=== PATIENT | female | born 1940 | race Caucasian/White ===

== ENCOUNTER → 2016-07-01 | Outpatient (CLI) | payer OTHER ==
[~2016-07-01] MED LIST: ACET-1138 PO; AMB5 PO; ASPEC81 PO; BND25X PO; CALC1CHW95 PO; CLB200 PO; CLC100 PO; CYM60 PO; EZET10TA47 PO; FRRG PO; LISI10TA PO; LPR25 PO; LPT/40 PO; LYR75 PO; MISCCAP80 PO; MLXESC PO; MOMLX PO; MULT-589 PO; MULTTAB58 PO; NXM/40 PO; OMEG10007 PO; PRT40 PO; RXC5 PO; TRAZ1TAB8 PO
[2016-07-01 12:48] LABS: MEAN CELL VOLUME 87.9 fL (80-100); MEAN PLATELET VOLUME 10.2 fL (7.4-10.4); PLATELET COUNT 388 K/uL (130-400); RED BLOOD COUNT 4.89 M/uL (4.2-5.4); WHITE BLOOD COUNT 9.52 K/uL (4.8-10.8)
[2016-07-01 13:04] LABS: BLOOD UREA NITROGEN 19 mg/dl (7-18); BUN/CREATININE RATIO 22.1 (10-20); CALCIUM 9.2 mg/dl (8.5-10.1); CARBON DIOXIDE 29 mmol/L (21-32); CHLORIDE 105 mmol/L (98-107); CREATININE 0.87 mg/dl (0.60-1.20); GLUCOSE 89 mg/dl (70-99); POTASSIUM 4.4 mmol/L (3.5-5.1); SODIUM 141 mmol/L (136-145)
== END | disposition home or self-care (01) ==
LOC: C.LABPVFM 09:31
PROVIDERS: ATTEND Family Medicine
DX: D64.9 Anemia, unspecified (principal); I10 Essential (primary) hypertension

== ENCOUNTER → 2017-02-18 | Outpatient (CLI) | payer OTHER ==
--- NOTE | 2017-02-18 10:36 | DIAGNOSTIC IMAGING REPORT ---
LEFT HUMERUS MIN 2 VIEWS ROUTINE, LEFT SHOULDER MIN 2 VIEWS ROUTINE CLINICAL HISTORY: BREAST CANCER PAIN IN LT SHOULDER COMPARISON STUDY: None. FINDINGS: 3 views of the left shoulder and 2 views of the left humerus. No acute fracture or dislocation within the left shoulder or left humerus. The left clavicle is intact. Mild AC joint degenerative change. Severe cartilage space narrowing with bzhg-pr-[id number] articulation, subchondral sclerosis, and subchondral cystic change at the glenohumeral joint. There are marginal osteophytes at the glenohumeral joint. Small ossific density inferior to the humeral head may represent an intra-articular loose body. This measures 7 mm. No suspicious osseous lesions within the left shoulder or left humerus. IMPRESSION: Severe osteoarthritis at the glenohumeral joint. No fractures or suspicious osseous lesions within the left shoulder or left humerus. Electronically signed by: Jakob Torrez M.D. 02/18/2017 10:35 AM Dictated Date/Time: 02/18/2017 10:31 AM
--- NOTE | 2017-02-18 10:36 | DIAGNOSTIC IMAGING REPORT ---
LEFT HUMERUS MIN 2 VIEWS ROUTINE, LEFT SHOULDER MIN 2 VIEWS ROUTINE CLINICAL HISTORY: BREAST CANCER PAIN IN LT SHOULDER COMPARISON STUDY: None. FINDINGS: 3 views of the left shoulder and 2 views of the left humerus. No acute fracture or dislocation within the left shoulder or left humerus. The left clavicle is intact. Mild AC joint degenerative change. Severe cartilage space narrowing with trsj-xn-yuri articulation, subchondral sclerosis, and subchondral cystic change at the glenohumeral joint. There are marginal osteophytes at the glenohumeral joint. Small ossific density inferior to the humeral head may represent an intra-articular loose body. This measures 7 mm. No suspicious osseous lesions within the left shoulder or left humerus. IMPRESSION: Severe osteoarthritis at the glenohumeral joint. No fractures or suspicious osseous lesions within the left shoulder or left humerus. Electronically signed by: Jakob Torrez M.D. 02/18/2017 10:35 AM Dictated Date/Time: 02/18/2017 10:31 AM
[2017-02-18 13:09] LABS: ALB/GLOB RATIO 0.9 (0.9-2); ALKALINE PHOSPHATASE 106 U/L (45-117); ALT/SGPT 28 U/L (12-78); AST/SGOT 25 U/L (15-37); BLOOD UREA NITROGEN 19 mg/dl (7-18); BUN/CREATININE RATIO 22.2 (10-20); CALCIUM 9.1 mg/dl (8.5-10.1); CARBON DIOXIDE 28 mmol/L (21-32); CHLORIDE 108 mmol/L (98-107); CREATININE 0.86 mg/dl (0.60-1.20); GLUCOSE 91 mg/dl (70-99); POTASSIUM 4.2 mmol/L (3.5-5.1); SODIUM 141 mmol/L (136-145)
[2017-02-18 13:10] LABS: ESTIMATED AVERAGE GLUCOSE 134 mg/dl; HA1C FLAG Normal (Normal)
[2017-02-18 13:13] LABS: CHOLESTEROL 188 mg/dl (0-200); CHOLESTEROL/HDL RATIO 3.4; HDL CHOLESTEROL 56 mg/dl; LDL CHOLESTEROL CALCULATED 105 mg/dl; TRIGLYCERIDES 134 mg/dl (0-150); VERY LOW DENSITY LIPOPROT CALC 27 mg/dl
== END | disposition home or self-care (01) ==
LOC: C.LABPVFM 09:48
PROVIDERS: ATTEND Family Medicine
DX: C50.919 Malignant neoplasm of unspecified site of unspecified female breast (principal); M25.512 Pain in left shoulder; I10 Essential (primary) hypertension; E78.5 Hyperlipidemia, unspecified; R73.09 Other abnormal glucose

== ENCOUNTER → 2017-04-03 | Outpatient (CLI) | payer OTHER ==
[~2017-04-03] MED LIST changes: -BND25X PO; +DIPH25CA50 PO; -TRAZ1TAB8 PO; +TRAZ1TAB9 PO
[2017-04-03 14:05] VITALS: BP_SYST 149; BP_SYST 181; BP_DIAS 82; BP_DIAS 90; PULSE 68; TEMP 36.9; O2SAT 98
--- NOTE | 2017-04-03 16:06 | Radiation Oncology Follow-Up ---
Radiation Oncology Follow-Up Date of Visit Apr 03, 2017. Reason For Visit Annual follow-up Radiation Completion Date APBI 08/25/12 Diagnosis (1) Intraductal carcinoma in situ of left breast Status: Resolved Onset Date: 04/22/2012 Stage: 0 Permanent Comment: Abnormal left breast mammogram Status post biopsy revealing DCIS 04/22/2012 Status post lumpectomy and sentinel lymph node biopsy Pathologic stage [id number] Reexcision 07/07/2012 benign Status post completion of radiation therapy utilizing accelerated partial breast treatment completed 08/25/2012 received 3850 cGy Last Edited By: Diamante Abrams on Mar 29, 2015 15:51 Interim History She has noticed no changes to her breast. She is noted no masses or tenderness and no change of the axilla. She has no swelling of her arm. She is up-to- date on mammography. She does have an area of scar tissue in the central lower portion of the breast. As noted especially when she rolls over in bed. There is been no changes to the overlying skin. There can be a feeling of pressure in the area she denies pain. Allergies Coded Allergies: Clonidine (Verified Allergy, Mild, ALLERGY TO CATAPRES PATCH, 04/25/16) Penicillins (Verified Allergy, Unknown, TOLD SINCE CHILDHOOD NOT TO TAKE, UNSURE WHY, 04/25/16) Metronidazole (Verified Adverse Reaction, Mild, NAUSEA, 04/25/16) Home Medications Scheduled Acetaminophen (Tylenol Extra Strength), 1,000 MG PO Q8H Aspirin (Aspirin EC Low Dose), 81 MG PO BID Atorvastatin (Lipitor), 40 MG PO HS Calcium & Phosphorus W/ Vitami (Citracal+D3 250-107-500 mg-mg-Unit), 1 TAB PO BID Duloxetine HCl (Duloxetine HCl), 60 MG PO QAM Esomeprazole Magnesium (Nexium), 40 MG PO QAM Ezetimibe (Zetia), 10 MG PO HS Fish Oil ([place]-3), 1 CAP PO QAM Lisinopril (Prinivil), 10 MG PO QAM Metoprolol Tartrate (Lopressor), 12.5 MG PO BID Multiple Vitamin (Multivitamin), 1 TAB PO QAM Probiotic Product (Probiotic), 1 CAP PO QAM Scheduled PRN Trazodone Hcl (Desyrel), 100 MG PO HS PRN for Sleep Review of Systems Gastrointestinal: Symptoms: WNL GI Comments: Consistency of stools can very but doesn't find to be a problem Oral: Symptoms: No Problems Respiratory: Symptoms: Dry Cough, SOB With Exertion Other Respiratory: AM cough on awaking; Urinary: Symptoms: Incontinence Skin: Symptoms: No Problems Breast: Right Upper Arm Measurement: 36.3 Right Mid Arm Measurement: 25.8 Right Wrist Measurement: 17.5 Left Upper Arm Measurement: 35.0 Left Mid Arm Measurement: 27.0 Left Wrist Measurement: 17.3 Arm Dominence: Right Physical Exam Vital Signs Date Time Temp Pulse Resp B/P (MAP) Pulse Ox O2 Delivery O2 Flow Rate FiO2 04/03/17 14:05 36.9 68 16 181/90 98 149/82 Fatigue: None General Appearance: no apparent distress Eyes: normal inspection, EOMI ENT: normal ENT inspection, hearing grossly normal Neck: no adenopathy, thyroid normal Respiratory/Chest: lungs clear, no respiratory distress, no accessory muscle use Breast: Breast examination reveals well-healed incisions of the left breast. She has a large area of fibrous tissue in the central lower portion of the breast. There are no distinct masses. There is no tenderness. She has no axillary adenopathy. There is no skin retractions or nipple changes. Using the Bradley score cosmesis she has a fair outcome. The right breast showed no masses or tenderness and no axillary adenopathy. Cardiovascular: regular rate, rhythm, no gallop, no murmur Abdomen: non tender, soft, no organomegaly Extremities: no pedal edema Neurologic/Psychiatric: no motor/sensory deficits, alert, normal mood/affect Skin: warm/dry Laboratory Studies Test 02/18/17 10:03 Sodium Level 141 mmol/L (136-145) Potassium Level 4.2 mmol/L (3.5-5.1) Chloride Level 108 mmol/L (98-107) Carbon Dioxide Level 28 mmol/L (21-32) Anion Gap 5.0 mmol/L (3-11) Blood Urea Nitrogen 19 mg/dl (7-18) Creatinine 0.86 mg/dl (0.60-1.20) Estimated GFR () 76.6 Estimated GFR (Non- 66.1 BUN/Creatinine Ratio 22.2 (10-20) Random Glucose 91 mg/dl (70-99) Estimated Average Glucose 134 mg/dl Hemoglobin A1c 6.3 % (4.5-5.6) Calcium Level 9.1 mg/dl (8.5-10.1) Total Bilirubin 0.5 mg/dl (0.2-1) Aspartate Amino Transferase (AST) 25 U/L (15-37) Alanine Aminotransferase (ALT) 28 U/L (12-78) Alkaline Phosphatase 106 U/L (45-117) Total Protein 7.2 gm/dl (6.4-8.2) Albumin 3.4 gm/dl (3.4-5.0) Globulin 3.8 gm/dl (2.5-4.0) Albumin/Globulin Ratio 0.9 (0.9-2) Triglycerides Level 134 mg/dl (0-150) Cholesterol Level 188 mg/dl (0-200) HDL Cholesterol 56 mg/dl LDL Cholesterol, Calculated 105 mg/dl VLDL Cholesterol, Calculated 27 mg/dl Cholesterol/HDL Ratio 3.4 Additional Studies Patient: WANDA SANTOS Med Rec: [id number] Address1: [address] [place] [address] [facility]: [id number] Date: 1940 Sex: F Ref Phy: Att Phy: Chirag Bennett M.D. Tanvi Phy: Chirag Bennett M.D. Inter Phy: Beverley Bianchi MD [facility] Zip: [place] [address] SC: C.MAMM Report #: [id number] Marketing Director Assisted Living: [facility] Diagnosis: ASYMPTOMATIC, HX BREAST CANCER Service Date: 04/09/16 MNE: [id number] Ordering Dr: Chirag Bennett M.D. CC: Chirag Bennett M.D. CONF: DICTATED BY: Beverley Bianchi MD MAMMOGRAPHY REPORT BILATERAL DIGITAL SCREENING MAMMOGRAM WITH CAD: 04/09/2016 CLINICAL HISTORY: Annual screening. Personal history of left breast cancer status post treatment. Comparison is made to exams dated: 04/05/2015 mammogram, 04/06/2013 mammogram, 04/05/2015 ultrasound, 04/07/2014 mammogram, 11/20/2012 mammogram, and 2011 [facility]. FINDINGS: Bilateral CC and MLO views were obtained. There are scattered areas of fibroglandular density in both breasts. Current study was also evaluated with a Computer Aided Detection (CAD) system. There is expected architectural distortion, density and a linear scar in the 6: 00 middle to anterior left breast, at the site of prior lumpectomy. There are stable benign rim calcifications and scattered bilateral round benign-appearing microcalcifications in the breasts. Stable grouped microcalcifications in the subareolar right breast. A faint grouping of punctate microcalcifications just medial and superior to the surgical scar in the middle one third of the left breast appear unchanged dating back to preoperative mammograms and are most likely benign. No new suspicious mass, architectural distortion or cluster of microcalcifications is seen bilaterally. There are mild vascular calcifications in the breasts. IMPRESSION: ACR BI-RADS CATEGORY 1: NEGATIVE Stable bilateral mammograms, without mammographic evidence of malignancy. A 1 year screening mammogram is recommended. The patient will receive written notification of the results. Approximately 10% of breast cancers are not detected with mammography. A negative mammographic report should not delay biopsy if a clinically suggestive mass is present. Beverley Bianchi M.D. ay/:04/09/2016 21:33:25 [employer] Supervisor: Karely Sierra RT(R)(M), [facility] letter sent: Normal 1/2 BI-RADS Code: ACR BI-RADS Category 1: Negative Dictated by: Beverley Bianchi MD Assessment & Plan Plan: Continue with annual mammography. She has a mammogram scheduled for next week. We discussed the large area of fibrous tissue. I recommended massage therapy. I did state that should this be come painful and bothersome that she could be referred to have the area of scar tissue removed. She does not currently wish to have any surgery at this time. She'll continue regular follow -up with Dr. Bower, Dr. Padgett, and . We asked her to return to our office in 1 year. She may call if she has any questions or concerns in the interim. Total Time In Follow-Up I spent 20 minutes speaking to the patient and performing examination. I spent 15 minutes reviewing information completing this note. Copy To Susan Bower MD; Kobe Padgett M.D.; Chirag Bennett M.D.
== END | disposition home or self-care (01) ==
LOC: C.ONC 13:51
PROVIDERS: ATTEND Physician Assistant Medical
DX: Z08 Encounter for follow-up examination after completed treatment for malignant neoplasm (principal); Z92.3 Personal history of irradiation; Z85.3 Personal history of malignant neoplasm of breast

== ENCOUNTER → 2017-04-10 | Outpatient (CLI) | payer OTHER ==
[~2017-04-10] MED LIST changes: -AMB5 PO; -CLB200 PO; -CLC100 PO; -DIPH25CA50 PO; -FRRG PO; -LYR75 PO; -MLXESC PO; -MOMLX PO; -MULT-589 PO; -PRT40 PO; -RXC5 PO
--- NOTE | 2017-04-10 14:36 | MAMMOGRAPHY REPORT ---
BILATERAL DIGITAL SCREENING MAMMOGRAM TOMOSYNTHESIS WITH CAD: 04/10/2017 CLINICAL HISTORY: Asymptomatic. Personal history of breast cancer. TECHNIQUE: Breast tomosynthesis in addition to standard 2D mammography was performed. Current study was also evaluated with a Computer Aided Detection (CAD) system. COMPARISON: Comparison is made to exams dated: 04/09/2016 mammogram, 04/05/2015 ultrasound, 04/05/20 15 mammogram, 04/07/2014 mammogram, 04/06/2013 mammogram, and 11/20/2012 mammogram - [facility]. BREAST COMPOSITION: There are scattered areas of fibroglandular density in both breasts. FINDINGS: No suspicious masses, calcifications, or areas of architectural distortion are noted in ei ther breast. There has been no significant interval change compared to prior exams. There are stable post surgical changes in the left central breast on prior lumpectomy, including stable density, arch itectural distortion, and benign dystrophic calcifications at the lumpectomy bed. Other bilateral be nign-appearing calcifications are not significantly changed. IMPRESSION: ACR BI-RADS CATEGORY 2: BENIGN There is no mammographic evidence of malignancy. A 1 year screening mammogram is recommended. The pa tient will receive written notification of the results. Approximately 10% of breast cancers are not detected with mammography. A negative mammographic report should not delay biopsy if a clinically suggestive mass is present. Alison Galdamez M.D. /:04/10/2017 09:38:45 [employer] Helper: Ana Johnson, [facility] letter sent: Normal 1/2 BI-RADS Code: ACR BI-RADS Category 2: Benign
== END | disposition home or self-care (01) ==
LOC: C.MAMM 09:07
PROVIDERS: ATTEND Family Medicine
DX: Z12.31 Encounter for screening mammogram for malignant neoplasm of breast (principal); Z85.3 Personal history of malignant neoplasm of breast

== ENCOUNTER → 2017-09-08 | Outpatient (CLI) | payer OTHER ==
[~2017-09-08] MED LIST changes: +TRAZ-122 PO; -TRAZ1TAB9 PO
[2017-09-08 14:18] LABS: ALT/SGPT 30 U/L (12-78); BLOOD UREA NITROGEN 29 mg/dl (7-18); CALCIUM 9.4 mg/dl (8.5-10.1); CARBON DIOXIDE 32 mmol/L (21-32); GLUCOSE 87 mg/dl (70-99); POTASSIUM 4.4 mmol/L (3.5-5.1); SODIUM 139 mmol/L (136-145)
[2017-09-08 14:27] LABS: CHOLESTEROL 193 mg/dl (0-200); LDL CHOLESTEROL (DIRECT) 132 mg/dl
== END | disposition home or self-care (01) ==
LOC: C.LABMFLN 07:25
PROVIDERS: ATTEND Family Medicine
DX: I10 Essential (primary) hypertension (principal); E78.5 Hyperlipidemia, unspecified; R53.83 Other fatigue; G62.9 Polyneuropathy, unspecified; M19.019 Primary osteoarthritis, unspecified shoulder; E55.9 Vitamin D deficiency, unspecified

== ENCOUNTER 2018-09-02 09:57 | Inpatient (IN) ==
--- NOTE | 2018-08-20 18:24 | PAT Medication Instructions ---
Medication Instructions Date of Service August 21, 2018 Home Medications Fish Oil 1 dose PO QAM Vitamin D3 1 dose PO QAM acetaminophen [Tylenol Arthritis] 650 mg PO Q12H PRN aspirin 81 mg PO QAM atorvastatin 80 mg PO HS calcium citrate-vitamin D3 [Citracal + D Maximum] 1 tab PO BID chlorthalidone 25 mg PO QAM doxycycline hyclate 100 mg PO QAM duloxetine 60 mg PO QAM esomeprazole magnesium 40 mg PO QAM ezetimibe 10 mg PO HS lisinopril 30 mg PO QAM metoprolol tartrate 25 mg PO UD multivitamin 1 tab PO QAM tramadol 50 mg PO Q6H PRN trazodone 100 mg PO HS ASK your surgeon for instructions aspirin 81 mg PO QAM STOP taking 2 weeks before surgery Fish Oil 1 dose PO QAM DO NOT take the morning of surgery Vitamin D3 1 dose PO QAM calcium citrate-vitamin D3 [Citracal + D Maximum] 1 tab PO BID chlorthalidone 25 mg PO QAM lisinopril 30 mg PO QAM multivitamin 1 tab PO QAM Take morning of surgery With a small sip of water, OTHERWISE NOTHING TO EAT OR DRINK AFTER MIDNIGHT: acetaminophen [Tylenol Arthritis] 650 mg PO Q12H NEEDED doxycycline hyclate 100 mg PO QAM duloxetine 60 mg PO QAM esomeprazole magnesium 40 mg PO QAM tramadol 50 mg PO Q6H NEEDED (stop 4 hours before surgery) Take evening before surgery acetaminophen [Tylenol Arthritis] 650 mg PO Q12H NEEDED atorvastatin 80 mg PO HS calcium citrate-vitamin D3 [Citracal + D Maximum] 1 tab PO BID ezetimibe (Zetia) 10 mg PO HS tramadol 50 mg PO Q6H NEEDED trazodone 100 mg PO HS Other Notes If you have any questions please call us at [phone] or [phone] or [phone] or [phone]
--- NOTE | 2018-08-24 09:40 | PAT Medication Instructions ---
Medication Instructions Date of Service August 24, 2018 Take morning of surgery With a small sip of water, OTHERWISE NOTHING TO EAT OR DRINK AFTER MIDNIGHT: Insulin Dependent Diabetic Patients * Test your blood sugar the morning of surgery * If Blood Sugar is GREATER THAN 150, take HALF of your regular dose of: * If Blood Sugar is LESS THAN 150, DO NOT TAKE ANY: Other Notes If you have any questions please call us at [phone] or [phone] or [phone] or [phone]
--- NOTE | 2018-08-24 09:51 | Anesthesiology Consultation ---
Date of Service August 24, 2018 Assessment & Plan (1) Encounter for pre-operative examination: Chart Review Chart Review: Acceptable Risk for Surgery and Patient seen in Pre Admission Testing Teaching & Discussion Instructed NPO after midnight before surgery, except medications with 15 cc of water. Medication instructions provided according to the PAT guidelines. History Surgery Operation Date: 09/02/18 12:40 Proposed Procedures p Left Total Shoulder Arthroplasty, Bursectomy, Biceps Tenodesis - Corey Bansal MD Height/Weight Height: 5 ft 4 in Weight: 104.8 kg Allergies Allergy/AdvReac Type Severity Reaction Status Date / Time clonidine Allergy Mild ALLERGY TO Verified 08/03/18 10:20 CATAPRES PATCH Penicillins Allergy Unknown TOLD SINCE Verified 08/03/18 10:20 CHILDHOOD NOT TO TAKE, UNSURE WHY metronidazole AdvReac Mild NAUSEA Verified 08/03/18 10:20 Medications Home Medications Medication Instructions Recorded Confirmed Last Taken Fish Oil 1 dose PO QAM 08/03/18 08/03/18 Unknown Vitamin D3 1 dose PO QAM 08/03/18 08/03/18 Unknown acetaminophen [Tylenol Arthritis 650 mg PO Q12H PRN 08/03/18 08/03/18 Unknown Pain] aspirin 81 mg PO QAM 08/03/18 08/03/18 Unknown atorvastatin 80 mg PO HS 08/03/18 08/03/18 Unknown calcium citrate-vitamin D3 1 tab PO BID 08/03/18 08/03/18 Unknown [Citracal + D Maximum] chlorthalidone 25 mg PO QAM 08/03/18 08/03/18 Unknown doxycycline hyclate 100 mg PO QAM 08/03/18 08/03/18 Unknown duloxetine 60 mg PO QAM 08/03/18 08/03/18 Unknown esomeprazole magnesium 40 mg PO QAM 08/03/18 08/03/18 Unknown ezetimibe 10 mg PO HS 08/03/18 08/03/18 Unknown lisinopril 30 mg PO QAM 08/03/18 08/03/18 Unknown metoprolol tartrate 25 mg PO UD 08/03/18 08/03/18 Unknown multivitamin 1 tab PO QAM 08/03/18 08/03/18 Unknown tramadol 50 mg PO Q6H PRN 08/03/18 08/03/18 Unknown trazodone 100 mg PO HS 08/03/18 08/03/18 Unknown Past Medical History Medical History Anxiety Arrhythmia PT UNSURE OF SPECIFICS - "MENTIONED IN PASSING A FEW YEARS AGO" - EKG NSR at PAT Chronic back pain Depression GERD (gastroesophageal reflux disease) Hearing deficit [place] History of breast cancer LEFT BREAST - S/P RADIATION 2013 History of hepatitis TYPE A (food related) A TEEN; TREATED History of ovarian cyst Hyperlipidemia Hypertension Obesity (BMI 30-39.9) Osteoarthritis Spinal stenosis Past Family History Family History Father Family history of diabetes mellitus Past Surgical History Surgical History History of abdominal surgery OPEN; REMOVAL OF SCAR TISSUE History of appendectomy History of breast biopsy LEFT History of cataract surgery History of cholecystectomy History of colonoscopy W/ POLYPECTOMY History of esophagogastroduodenoscopy (EGD) History of foot surgery RT History of laminectomy LUMBAR SPINE History of ovarian cystectomy History of thumb surgery BL History of tonsillectomy History of total hip arthroplasty BL Past Anesthesia History No Hx of Anesthesia Complications and No Family Hx of Anesthesia Complications History of PONV No Motion Sickness Screening History of Motion Sickness: No Social History Smoking Status: Never smoker Do You Dip or Chew Tobacco: No Hx Alcohol Use: No Hx Substance Use: No substance use type: does not use Exercise / Class Metabolic Activity II 4-5 Yardwork/Stairs/Walk up hill (Has full flight of stairs at home, does sev eral times daily with mild SOB, denies CP.) Review of Systems Pt denies any recent chest pain, shortness of breath, palpitations, cough, fever or URI. +mild productive cough every morning for years, baseline. Physical Exam Vital Signs BP: 117/79 P: 86bpm SPO2: 93% RA T: 98.5 F R: 12 ENMT Mouth: + dentures (upper only) and + dental restorations (few caps on lower teeth); no chipped teeth and no loose teeth Thyromental Distance: < 3.5 Finger Breadths (3) Mallampati Class: II Neck normal visual inspection; neck extension not limited Respiratory normal respiratory effort Auscultation: lungs clear to auscultation bilaterally Cardiovascular Rate/Rhythm: regular rate and regular rhythm Heart Sounds: no murmur Vessels: no carotid bruit Extremities: no edema Testing Electrocardiogram Date: 08/24/18 Findings: + NSR @ (83) Chest X-Ray Date: 08/24/18 Findings: + NAD Echocardiogram Date: 04/25/16 EF: 65-70% The left ventricle is normal in size. Left ventricular systolic function is normal. The right ventricle is normal in size and function. The left atrial size is normal. Right atrial size is normal. No significant valvular disease. Laboratory Results 08/24/18 10:27 08/24/18 10:27 Blood Type O Positive 08/24/18 10:27 Antibody Screen NEGATIVE 08/24/18 10:27 PT 10.1 Seconds (9.0-12.0) 08/24/18 10:27 INR 1.0 (0.9-1.1) 08/24/18 10:27 APTT 24.0 Seconds (21.0-31.0) 08/24/18 10:27 Hemoglobin A1c 6.3 % (4.5-5.6) H 08/24/18 10:27 Urine Color Yellow 08/24/18 10:27 Urine Appearance Clear (Clear) 08/24/18 10:27 Urine pH 5.0 (4.5-7.5) 08/24/18 10:27 Ur Specific [place] 1.016 (1.000-1.030) 08/24/18 10:27 Urine Protein Negative (Negative) 08/24/18 10:27 Urine Glucose (UA) Negative (Negative) 08/24/18 10:27 Urine Ketones Negative (Negative) 08/24/18 10:27 Urine Nitrite Negative (Negative) 08/24/18 10:27 Ur Leukocyte Esterase 1+ (Negative) H 08/24/18 10:27 Urine WBC (Auto) 10-30 /hpf (0-5) H 08/24/18 10:27 Urine RBC (Auto) 0-4 /hpf (0-4) 08/24/18 10:27 U Hyaline Cast (Auto) 0 /lpf (0-5) 08/24/18 10:27 U Epithel Cells (Auto) 20-30 /lpf (0-5) H 08/24/18 10:27 Urine Bacteria (Auto) 2+ (Negative) H 08/24/18 10:27 *surgeon made aware of + UA
--- NOTE | 2018-08-24 09:55 | PAT Medication Instructions ---
Medication Instructions Date of Service August 24, 2018 Home Medications Fish Oil 1 dose PO QAM Vitamin D3 1 dose PO QAM acetaminophen [Tylenol Arthritis] 650 mg PO Q12H PRN aspirin 81 mg PO QAM atorvastatin 80 mg PO HS calcium citrate-vitamin D3 1 tab PO BID chlorthalidone 25 mg PO QAM doxycycline hyclate 100 mg PO QAM duloxetine 60 mg PO QAM esomeprazole magnesium 40 mg PO QAM ezetimibe 10 mg PO HS lisinopril 30 mg PO QAM metoprolol tartrate 25 mg PO UD multivitamin 1 tab PO QAM tramadol 50 mg PO Q6H PRN trazodone 100 mg PO HS STOP taking 2 weeks before surgery Fish Oil 1 dose PO QAM DO NOT take the morning of surgery Vitamin D3 1 dose PO QAM chlorthalidone 25 mg PO QAM doxycycline hyclate 100 mg PO QAM lisinopril 30 mg PO QAM multivitamin 1 tab PO QAM Take morning of surgery With a small sip of water, OTHERWISE NOTHING TO EAT OR DRINK AFTER MIDNIGHT: acetaminophen [Tylenol Arthritis] 650 mg PO Q12H PRN (if needed, may be taken up to four hours before surgery) aspirin 81 mg PO QAM duloxetine 60 mg PO QAM esomeprazole magnesium 40 mg PO QAM metoprolol tartrate 25 mg PO UD tramadol 50 mg PO Q6H PRN (if needed, may be taken up to four hours before surgery) Take evening before surgery acetaminophen [Tylenol Arthritis] 650 mg PO Q12H PRN (if needed) atorvastatin 80 mg PO HS calcium citrate-vitamin D3 1 tab PO BID ezetimibe 10 mg PO HS metoprolol tartrate 25 mg PO UD tramadol 50 mg PO Q6H PRN (if needed) trazodone 100 mg PO HS Other Notes If you have any questions please call us at [phone] or [phone] or [phone] or [phone]
--- NOTE | 2018-08-24 10:52 | XRay Report ---
TWO VIEW CHEST CLINICAL HISTORY: Preoperative examination. FINDINGS: PA and lateral chest radiographs are compared to study dated 04/03/2016. The cardiomediasti nal silhouette is unremarkable, noting atherosclerotic calcification of the thoracic aorta. The lung s and pleural spaces are clear. There is no pneumothorax. The skeletal structures are osteopenic. The bony thorax appears intact. Advanced arthritic change is seen in the shoulders. Degenerative change is also seen in the thoracic spine. IMPRESSION: No active disease in the chest. Electronically signed by: Gab Escalera M.D. 08/24/2018 10:50 AM
[2018-08-24 10:55] LABS: Basophils # (auto) 0.05 K/uL (0-0.2); Basophils % (auto) 0.5 %; Eosinophils # (auto) 0.41 K/uL (0-0.5); Eosinophils % (auto) 4.3 %; Immature Granulocytes # (auto) 0.02 K/uL (0.00-0.02); Immature Granulocytes % (auto) 0.2 %; Lymphocytes # (auto) 1.83 K/uL (1.2-3.4); Lymphocytes % (auto) 19.3 %; Mean Corpuscular Hgb Conc 32.4 g/dL (32-36); Mean Platelet Volume 9.9 fL (7.4-10.4); Monocytes # (auto) 0.95 K/uL (0.11-0.59); Neutrophils % (auto) 65.7 %; Platelet Count 363 K/uL (130-400); RDW Coefficient of Variation 13.8 % (11.5-14.5); RDW Standard Deviation 45.6 fL (36.4-46.3); Red Blood Count 4.11 M/uL (4.2-5.4); White Blood Count 9.46 K/uL (4.8-10.8)
[2018-08-24 11:03] LABS: Appearance Urine Clear (Clear); Bacteria Urine Automated 2+ (Negative); Bilirubin Urine Negative (Negative); Blood Urine Negative (Negative); Cast Urine Automated 0 /lpf (0-5); Color Urine Yellow; Epithelial Cell Urine Auto 20-30 /lpf (0-5); Glucose Urine UA Negative (Negative); Ketones Urine Negative (Negative); Leukocyte Esterase Urine 1+ (Negative); Nitrite Urine Negative (Negative); Protein Urine Negative (Negative); RBC Urine Automated 0-4 /hpf (0-4); Specific Gravity Urine 1.016 (1.000-1.030); Urobilinogen Urine Negative (Negative)
[2018-08-24 11:08] LABS: Partial Thromboplastin Ratio 0.9; Prothrombin Time 10.1 Seconds (9.0-12.0)
[2018-08-24 11:14] LABS: Albumin Level 3.3 gm/dl (3.4-5.0); BUN Creatinine Ratio 22.4 (10-20); Creatinine Clr Calc Pharmacy 60.7 ml/min; Est GFR (African American) 69.2; Est GFR (Non-African American) 59.7; Potassium 4.2 mmol/L (3.5-5.1)
[2018-08-24 11:41] LABS: Estimated Average Glucose 134 mg/dl; Hemoglobin A1C 6.3 % (4.5-5.6)
--- NOTE | 2018-09-01 17:52 | History and Physical Report ---
DATE OF ADMISSION: 09/02/2018 CHIEF COMPLAINT: Chronic left shoulder pain. HISTORY OF PRESENT ILLNESS: This is a 77-year-old female patient of Dr. Cooper complaining of chronic left shoulder pain, longstanding, now progressively getting worse. The patient has failed conservative treatment and has been diagnosed with end-stage osteoarthritis per clinical and radiographic exams. The patient wished to proceed with a left shoulder total shoulder arthroplasty. PAST MEDICAL HISTORY: Hypertension, hypercholesterolemia, anxiety, osteoarthritis, spine problems, sciatica, obesity, history of breast cancer. SOCIAL HISTORY: Nonsmoker, nondrinker. PAST SURGICAL HISTORY: Bilateral total hip surgery, foot surgery, gallbladder, ovarian cyst, spine abscess, bilateral wrists and bilateral cataracts. FAMILY HISTORY: Noncontributory. REVIEW OF SYSTEMS: Chronic left shoulder pain. Otherwise, denies any shortness of breath, chest pain, nausea, vomiting or any other joints complaints. MEDICATIONS: Cymbalta 60 mg daily, Nexium 40 mg daily, Zetia 10 mg daily, trazodone 100 mg twice daily, Meloxicam 15 mg daily, metoprolol 25 mg daily, doxycycline 100 mg twice daily, aspirin 81 mg daily, Citracal with vitamin D daily, atorvastatin 80 mg daily, Tylenol as needed, fish oil daily, metronidazole 0.75% topical gel apply to affected area twice daily, tramadol 50 mg as needed, vitamin D3 daily, chlorthalidone 25 mg daily. ALLERGIES: FLAGYL AND PENICILLIN. PHYSICAL EXAMINATION: GENERAL: Well-developed, well-nourished 77-year-old female patient of Dr. Cooper. She is alert and oriented x3 and pleasant. HEENT: Normocephalic, atraumatic. Extraocular motions intact. Pupils are equal and reactive to light. HEART: Regular rate and rhythm, no murmurs. LUNGS: Clear. ABDOMEN: Soft, nontender, bowel sounds present. EXTREMITIES: Left shoulder active range of motion 0-30 degrees with pain. Passively we can get her to 90 degrees with severe pain. She has crepitation with passive range of motion. She has 3/5 strength globally. NEUROLOGIC: Neurovascularly, she is intact in her left upper extremity. DIAGNOSES: Left shoulder end-stage osteoarthritis, hypertension, hypercholesterolemia, anxiety, osteoarthritis, spine problem, sciatica, obesity and history of breast cancer. PLAN: The patient was advised of her diagnosis. Indications, risks, benefits, postop course have all been reviewed. The patient wished to proceed with a left total shoulder arthroplasty with biceps tenodesis. Necessary consent forms, preoperative testing and clearances will be obtained.
[~2018-09-02 09:57] MED LIST changes: -ACET-1138 PO; +ACETAMINOPHEN 500 MG TAB PO SCH; -ASPEC81 PO; -CALC1CHW95 PO; -CYM60 PO; +CeleBREX 200 MG CAP PO SCH; +DEXAMETHASONE SOD INJ 4 MG/ML VIAL ONE; -EZET10TA47 PO; +FAMOTIDINE 20 MG TAB PO SCH; +GABAPENTIN 300 MG PO SCH; +GLYCOPYRROLATE 0.2 MG/ML VIAL ONE; +LIDOCAINE HCL 2% 2 ML VIAL/AMP(20MG/ML) INFIL ONE; -LISI10TA PO; -LPR25 PO; -LPT/40 PO; +LR 15ML/HR IV SCH; +METOCLOPRAMIDE HCL 10 MG TABLET PO SCH; +MIDAZOLAM HCL 1 MG/ML 2ML VIAL ONE; -MISCCAP80 PO; -MULTTAB58 PO; +NEOSTIGMINE METHYLSULFATE 5 MG/5 ML SYR ONE; -NXM/40 PO; -OMEG10007 PO; +ONDANSETRON INJ 2 MG/ML 2 ML VIAL ONE; +PROPOFOL IV EMULSION 10 MG/ML 20 ML VIAL IV ONE; +ROPIVACAINE 0.5% 5 MG/ML 30 ML VIAL ONE; -TRAZ-122 PO; +VANCOMYCIN HCL 1,000 MG/270 ML BAG IV SCH; +VANCOMYCIN HCL 1,500 MG in SODIUM CHLORIDE 0.9% 500 ML IV SCH; +dexAMETHasone 4 MG TAB PO SCH; +fentaNYL citrate 100 MCG/2 ML VIAL ONE
--- NOTE | 2018-09-02 10:17 | History & Physical Bridge Note ---
Date of Service September 02, 2018 History & Physical Bridge Note I have examined the patient, reviewed the History & Physical and in the interval since the performance of the History & Physical I have noted the following changes of clinical significance: no changes noted
[2018-09-02] MEDS ORDERED: BACITRACIN INJ 50,000 UNIT VIAL ONE (11:02)
[2018-09-02] MEDS ORDERED: EpINEphrine HCL INJ 1 MG/ML 1ML SYRINGE ONE (11:03)
[2018-09-02] MEDS ORDERED: FLUMAZENIL 0.1 MG/1 ML 10 ML VIAL IV PRN (12:02)
[2018-09-02] MEDS ORDERED: ePHEDrine sulfate 50 MG/ML AMP IV PRN (12:02)
[2018-09-02] MEDS ORDERED: HYDROmorphone INJ 1 MG/ML SYRINGE IV PRN (12:02)
[2018-09-02] MEDS ORDERED: ONDANSETRON INJ 2 MG/ML 2 ML VIAL IV PRN ×2 (12:02→16:28)
[2018-09-02] MEDS ORDERED: PROMETHAZINE HCL 12.5 MG in SODIUM CHLORIDE 0.9% 50 ML IV PRN (12:02)
[2018-09-02] MEDS ORDERED: LABETALOL HCL IV 5 MG/ML 20ML IV PRN (12:02)
[2018-09-02] MEDS ORDERED: NALOXONE HCL 0.4 MG/1 ML VIAL/CARP IV PRN ×2 (12:02→16:28)
[2018-09-02] MEDS ORDERED: ATROPINE SULFATE 0.1 MG/ML 10ML SYR IV PRN (12:02)
[2018-09-02] MEDS ORDERED: fentaNYL citrate 100 MCG/2 ML VIAL ONE (12:26)
[2018-09-02] MEDS ORDERED: PHENYLEPHRINE HCL 10 MG/ML VIAL ONE (12:40)
[2018-09-02] MEDS ORDERED: ePHEDrine sulfate 50 MG/ML SYR ONE (12:40)
[2018-09-02] MEDS ORDERED: HYDROmorphone INJ 2 MG/ML SYR/VIAL ONE (13:19)
[2018-09-02] MEDS ORDERED: ROCURONIUM BROMIDE 10 MG/ML 5 ML VIAL ONE (14:03)
[2018-09-02] MEDS ORDERED: ONDANSETRON INJ 2 MG/ML 2 ML VIAL ONE (14:03)
[2018-09-02] MEDS ORDERED: GLYCOPYRROLATE 0.2 MG/ML VIAL ONE (14:03)
--- NOTE | 2018-09-02 15:04 | Operative Report ---
Post Operative Report Pre & Post Diagnosis Operation Date: 09/02/18 13:00 Pre-Op Diagnosis: Left Shoulder Osteoarthritis, subacromial bursitis, biceps tendinopathy, obesity BMI 39.7 Post-Op Diagnosis: Left Shoulder Osteoarthritis, subacromial bursitis, biceps tendinopathy, obesity BMI 39.7 Procedure Operation Date: 09/02/18 13:00 Actual Procedures p Left Shoulder: Total Shoulder Arthroplasty (Cemented) with subacromial bursectomy and Biceps Tenodesis(Left) - Corey Bansal MD Surgeon Corey Bansal MD Knife Setter Assembler Jaspal GREENE, Jose Antonio GREENE Estimated Blood Loss 200 Findings Consistent with Post-Op Diagnosis Specimens Humeral head Drains 2 Hemovac Anesthesia Type General Regional Complications none Disposition Accompanied Patient To Recovery: No Disposition: Recovery Room Indications 77-year-old obese female with chronic progressive osteoarthritis in her left shoulder [id number] in the glenohumeral joint with concentric wear on axillary view. Patient has an MRI demonstrating massive subacromial bursitis and rotator cuff tendinopathy probable partial tearing of the rotator cuff marked biceps tendinopathy and biceps tenosynovitis. Description of Procedure The patient was taken to the operating room and anesthetized under a general and regional block anesthesia. A towel roll was placed under the medial border of the scapula of the left shoulder. The patient's head was placed on a foam headrest and protective eyewear was placed and the extremities were well padded. The arm was draped free in order to manipulate the shoulder as necessary. The shoulder exam demonstrated good passive range of motion 160 degrees forward elevation 120 degrees abduction external rotation to 60 degrees. The shoulder was sterilely prepped and draped in the usual sterile fashion. An anterior deltopectoral approach was performed. A longitudinal incision was made in the interval. Larger than typical incision was made because the obesity. The skin was incised sharply and subcutaneous tissues dissected down to the fascia. The cephalic vein which was not well-developed and small was identified and retracted laterally with the deltoid. Any crossing veins were tied off with silk ties and divided. The clavipectoral fascia was divided at the lateral margin of the conjoined tendon and divided up to the level of the coracoacromial ligament which was preserved. The upper 1 cm of the pectoralis was released for inferior exposure. The biceps tendon findings demonstrated tenosynovitis from the pectoralis up to the bicipital groove and intra-articularly marked widening of the biceps tendon with chronic tendinopathy. The rotator cuff tendon findings demonstrated massive subacromial bursitis involving the subscapularis supraspinatus and infraspinatus. Rotator cuff however underlying it was intact with intact good subscapularis tissue some tendinopathy and fraying of the supraspinatus but no evidence of any full-thickness tear of the rotator cuff. The circumflex vessels were identified and tied off with silk ties and divided laterally. The fibers and subscapularis were split longitudinally at the level of the circumflex vessels down to the capsule and then reflected off the inferior capsule using a Kitner elevator. The axillary nerve was protected with a blunt Mavis retractor. The rotator interval was opened up and extended down to the glenoid. The biceps tendon was identified and tenodesed to the pectoralis tendon with hwlfil-[id number] #2 FiberWire sutures in the proximal biceps was resected. The subscapularis tendon was taken down with a trans- tendinous incision leaving a cuff of tissue for repair on the lesser tuberosity. The incision was carried down to the tendon and the capsule and a #1 Vicryl suture was placed into the free end of the subscapularis tendon. The capsule was subperiosteally dissected off the inferior neck of the humerus exposing the humeral osteophytes which demonstrated large inferior osteophytes extending from lateral to posterior. The osteophytes were excised with an artist chisel and a rongeur. The capsular release along the inferior neck of the humerus was completed. The humerus was then retracted posterior to the glenoid with a Fukuda retractor. The remainder of the biceps tendon and labrum was resected. The glenoid findings demonstrated completely exposed bone multiple cysts throughout the entire surface of the glenoid degenerative glenoid labrum multiple osteophytes and loose bodies. Loose bodies were resected labrum was resected. I did an anterior inferior and posterior inferior release with electrocautery on bone and a Shoemaker elevator with the axillary nerve continuing to be protected with the blunt Hohmann retractor inferiorly. When the releases were completed and the humeral head was exposed with some extension and external rotation and in anatomic head cut was made using the oscillating saw. The humeral head findings demonstrated eburnated bone flattening of the humeral head with some bone loss. The humeral head was then retracted posterior to the glenoid with Hohmann retractors and Bankart retractor placed anteriorly. A central drill hole was made into the glenoid. The glenoid was sized for a size 48 component. The ascend flex Tornier total shoulder arthroplasty system was used and the Affinity Cortiloc size 48 glenoid component was chosen. The glenoid was reamed and the central drill widened and the guide for the peg holes was placed in the peg holes were drilled and a trial component was placed with a tight fit. The trial was removed and the glenoid was irrigated with pulsatile lavage antibiotic solution and the drill holes were dried and packed with epinephrine-soaked tampons for hemostasis. The Palacos G cement was vacuum mixed. The final component was cemented into position and held in position with pressure until the cement cured. Attention was taken to the humeral preparation. A centralizing awl was used in the canal followed by broaches up to a size 5. This had the appropriate fit and fill. A size 48 x 18 millimeter humeral head was then used. It was rotated into appropriate position. A trial reduction was performed and the shoulder was stable. The trial was removed and the humerus and canal were irrigated with antibiotic solution with bacitracin. 3 drill holes were made into the hard bone in the bicipital groove lateral to the lesser tuberosity and 3 #5 FiberWire transosseous sutures were placed for repair of the subscapularis. After further irrigation of the canal and the final components were assembled. The final components were the high offset 48 x 18 humeral head assembled to the 5A standard humeral stem. The implant was then impacted into the humerus with a tight press-fit. The humerus was reduced to the glenoid and stability verified. The subscapularis was repaired with the #5 FiberWire sutures in a Franco-Campos suture technique and lateral row fixation with [id number] #2 FiberWire in the soft tissue. The rotator interval was closed and maximal external rotation. The pectoralis was then closed with [id number]-[id number] #2 FiberWire suture. 2 Hemovac drains were placed. The deltopectoral interval was closed with [id number]-[id number] #1 Vicryl sutures. The subcutaneous tissues were closed with interrupted 2-0 Vicryl and the skin was closed with janae and a sterile dressing was applied. The patient tolerated the procedure well. Initially Jaspal GREENE followed by Jose Antonio GREENE my physician assistants, assisted in soft tissue retraction instrument management suture management and assisted in the subcutaneous and skin closure and will participate in the postoperative care the patient. There was some increased difficulty due to her obesity. I attest to the content of the Intraoperative Record and any orders documented therein. Any exceptions are noted below.
--- NOTE | 2018-09-02 15:48 | Anesthesiology Progress Note ---
Date of Service September 02, 2018 Anesthesia Post Procedure Vital Signs Vital Signs: Temp Pulse Pulse Resp BP BP Pulse Ox 09/02/18 15:37 36.6 C 77 17 125/67 100 09/02/18 15:35 77 18 100 09/02/18 15:31 85 26 H 128/66 100 09/02/18 15:30 77 21 100 09/02/18 15:26 76 15 132/70 100 09/02/18 15:25 77 23 98 09/02/18 15:21 90 13 137/70 98 09/02/18 15:20 84 16 98 09/02/18 15:16 85 8 L 132/68 100 09/02/18 15:15 86 16 100 09/02/18 15:11 80 18 136/74 100 09/02/18 15:10 82 13 100 09/02/18 15:07 36.3 C L 88 89 14 142/79 H 142/79 H 98 09/02/18 15:06 16 09/02/18 10:38 37 C 81 20 134/77 96 Notes Mental Status: alert / awake / arousable and participated in evaluation Patient Amnestic to Procedure: Yes Nausea / Vomiting: adequately controlled Pain: adequately controlled Airway Patency, RR, SpO2: stable & adequate BP & HR: stable & adequate Hydration State: stable & adequate Anesthetic Complications: no major complications apparent and Pt Satisfied with anesthetic care
--- NOTE | 2018-09-02 15:56 | XRay Report ---
XR shoulder LT min 2V routine CLINICAL HISTORY: Post shoulder surgery COMPARISON STUDY: Left shoulder 02/18/2017. FINDINGS: The patient is status post left total shoulder arthroplasty. The hardware is intact. Skin s taples and surgical drains are in place. No fracture or dislocation. IMPRESSION: Status post left total shoulder arthroplasty. No evidence for hardware complication. Electronically signed by: Jakob Torrez M.D. 09/02/2018 3:54 PM
[2018-09-02] MEDS ORDERED: MAGNESIUM HYDROXIDE SUSP 30 ML UDC PO PRN (16:28)
[2018-09-02] MEDS ORDERED: NON-FORMULARY MEDICATION (Acetaminophen [Tylenol Arthritis Pain] 650 MG) PO PRN (16:28)
[2018-09-02] MEDS ORDERED: METOPROLOL TARTRATE 25 MG TAB PO SCH (16:28)
[2018-09-02] MEDS ORDERED: HYDROmorphone INJ 0.5 MG/0.5 ML SYR IV PRN (16:28)
[2018-09-02] MEDS ORDERED: BISACODYL 10 MG SUPP PR PRN (16:28)
[2018-09-02] MEDS ORDERED: VANCOMYCIN CONSULT ACTIVE PRN (16:28)
--- NOTE | 2018-09-02 17:28 | Consultation ---
Date of Consultation September 02, 2018 Assessment & Plan (1) Shoulder pain: Post-op with Dr. Bansal Pre-op Hb 12.0 (2) Hyperlipidemia: continue home meds (3) HTN (hypertension): continue home meds (4) GERD (gastroesophageal reflux disease): continue home meds (5) DVT prophylaxis: As per ortho (6) Depression: continue home meds (7) Anxiety: continue home meds (8) CHACHO (obstructive sleep apnea): Supposed to wear HS O2 via NC but does not History of Present Illness Attending Physician: Corey Bansal MD History of Present Illness 77 y/o F who was admitted on 09/02 s/p L shoulder arthroplasty with Dr. Bansal. Pt is doing well post-op. She has not eaten yet, but no GI issues post-op. Pt denies fever, SOB, chest pain, abd pain, n/v/c/d, LE swelling. Allergies Allergy/AdvReac Type Severity Reaction Status Date / Time clonidine Allergy Mild ALLERGY TO Verified 09/02/18 10:23 CATAPRES PATCH Penicillins Allergy Unknown TOLD SINCE Verified 09/02/18 10:23 CHILDHOOD NOT TO TAKE, UNSURE WHY metronidazole AdvReac Mild NAUSEA Verified 09/02/18 10:23 Home Medications Home Medications Medication Instructions Recorded Confirmed Type Fish Oil 1 dose PO QAM 08/03/18 09/02/18 History Vitamin D3 1 dose PO QAM 08/03/18 09/02/18 History acetaminophen [Tylenol Arthritis 650 mg PO Q12H PRN 08/03/18 09/02/18 History Pain] aspirin 81 mg PO QAM 08/03/18 09/02/18 History atorvastatin 80 mg PO HS 08/03/18 09/02/18 History calcium citrate-vitamin D3 1 tab PO BID 08/03/18 09/02/18 History [Citracal + D Maximum] chlorthalidone 25 mg PO QAM 08/03/18 09/02/18 History doxycycline hyclate 100 mg PO QAM 08/03/18 09/02/18 History duloxetine 60 mg PO QAM 08/03/18 09/02/18 History esomeprazole magnesium 40 mg PO QAM 08/03/18 09/02/18 History ezetimibe 10 mg PO HS 08/03/18 09/02/18 History lisinopril 30 mg PO QAM 08/03/18 09/02/18 History metoprolol tartrate 25 mg PO UD 08/03/18 09/02/18 History multivitamin 1 tab PO QAM 08/03/18 09/02/18 History tramadol 50 mg PO Q6H PRN 08/03/18 09/02/18 History trazodone 100 mg PO HS 08/03/18 09/02/18 History Patient History Medical History Anxiety Arrhythmia PT UNSURE OF SPECIFICS - "MENTIONED IN PASSING A FEW YEARS AGO" - EKG NSR at [facility] Chronic back pain Depression GERD (gastroesophageal reflux disease) Hearing deficit [place] History of breast cancer LEFT BREAST - S/P RADIATION 2013 History of hepatitis TYPE A (food related) A TEEN; TREATED History of ovarian cyst Hyperlipidemia Hypertension Obesity (BMI 30-39.9) Osteoarthritis Spinal stenosis Surgical History History of abdominal surgery OPEN; REMOVAL OF SCAR TISSUE History of appendectomy History of breast biopsy LEFT History of cataract surgery History of cholecystectomy History of colonoscopy W/ POLYPECTOMY History of esophagogastroduodenoscopy (EGD) History of foot surgery RT History of laminectomy LUMBAR SPINE History of ovarian cystectomy History of thumb surgery BL History of tonsillectomy History of total hip arthroplasty BL Family History Father Family history of diabetes mellitus Coronary heart disease s/p TX Mother Coronary heart disease s/p TX Social History Preferred Language: Citizen Of [place] Communication Ability: Effective Freezer Operator Required: No Beliefs That Will Affect Care: None Current Living Situation: Alone Other Information That Helps Us Care for You: No Feels Safe at Home: Yes Safety Concerns: Feels Safe At This Time Smoking Status: Never smoker Hx Alcohol Use: No Hx Substance Use: No Review of Systems Pertinent positives and negatives reviewed in HPI--all others negative Physical Exam Vital Signs (Past 24 Hours): Last Vital Signs Temp 36.3 C L 09/02/18 17:15 Pulse 69 09/02/18 17:15 Resp 16 09/02/18 17:15 BP 94/55 L 09/02/18 17:15 Pulse Ox 93 09/02/18 17:15 Constitutional: WD/WN, vitals as above Eyes: normal visual joseph by confrontation and + anicteric sclerae Neck: normal visual inspection and trachea midline Respiratory: normal respiratory effort, lungs clear to auscultation Cardiovascular: Rate/Rhythm: regular rate and regular rhythm Gastrointestinal (Abdomen): Inspection/Auscultation: abdomen not distended Percussion/Palpation: abdomen soft; abdomen nontender Musculoskeletal: Head/Neck/Chest: normocephalic and head atraumatic negative for edema, peripheral pulses intact Skin: no rashes, warm and dry Neurologic: awake; not confused Speech / Cognition: normal speech Psychiatric: A+Ox3, euthymic affect
[2018-09-02] MEDS: CALCIUM 600MG + VIT D 400 IU TAB PO SCH (20:42)
[2018-09-02] MEDS: TRAZODONE HCL 100 MG TAB PO SCH (20:42)
[2018-09-02] MEDS: SENNA 8.6 MG TAB PO SCH (20:43)
[2018-09-02] MEDS: EZETIMIBE 10 MG TABLET PO SCH (20:43)
[2018-09-02] MEDS: ATORVASTATIN 40 MG TAB PO SCH (20:43)
[2018-09-02] MEDS: METOPROLOL TARTRATE 25 MG TAB PO SCH (20:43)
[2018-09-02] MEDS: DOCUSATE SODIUM 100 MG CAP PO SCH (20:43)
[2018-09-02] MEDS ORDERED: VANCOMYCIN HCL 1,500 MG in SODIUM CHLORIDE 0.9% 500 ML IV SCH (22:00)
[2018-09-02] MEDS: ACETAMINOPHEN 500 MG TAB PO SCH (22:17)
[2018-09-02] MEDS ORDERED: COUGH DROP (SUGAR FREE) LOZ 24 LOZ/1 BOX BUCCAL PRN (22:48)
[2018-09-03] MEDS ORDERED: SODIUM CHLORIDE 0.9% 500 ML IV ONE
[2018-09-03] MEDS: SODIUM CHLORIDE 0.9% 1000ML 1,000 ML IV SCH ×3 (00:10→05:53)
[2018-09-03] MEDS: ACETAMINOPHEN 500 MG TAB PO SCH ×3 (05:53→21:13)
--- NOTE | 2018-09-03 08:27 | Anesthesiology Progress Note ---
Date of Service September 03, 2018 Anesthesia Post Procedure Vital Signs Vital Signs: Temp Pulse Pulse Pulse Resp BP BP 09/03/18 07:47 36.8 C 87 18 130/81 09/03/18 03:38 36.8 C 106 H 18 126/63 09/03/18 02:04 98 H 98/61 L 09/02/18 23:30 109 H 83/56 L 09/02/18 23:09 109 H 72/44 L 09/02/18 23:08 36.7 C 109 H 18 79/50 L 09/02/18 20:41 94/61 L 09/02/18 19:15 36.7 C 96 H 16 106/67 09/02/18 18:15 37.4 C 72 16 114/64 09/02/18 17:15 36.3 C L 69 16 94/55 L 09/02/18 16:45 36.3 C L 90 18 106/68 09/02/18 16:00 85 19 103/63 09/02/18 15:46 79 15 109/70 09/02/18 15:45 86 14 09/02/18 15:41 75 20 125/67 09/02/18 15:40 79 17 09/02/18 15:37 36.6 C 77 17 125/67 09/02/18 15:36 83 14 139/75 09/02/18 15:35 77 18 09/02/18 15:31 85 26 H 128/66 09/02/18 15:30 77 21 09/02/18 15:26 76 15 132/70 09/02/18 15:25 77 23 09/02/18 15:21 90 13 137/70 09/02/18 15:20 84 16 09/02/18 15:16 85 8 L 132/68 09/02/18 15:15 86 16 09/02/18 15:11 80 18 136/74 09/02/18 15:10 82 13 09/02/18 15:07 36.3 C L 88 89 14 142/79 H 142/79 H 09/02/18 15:06 16 09/02/18 10:38 37 C 81 20 134/77 Pulse Ox 09/03/18 07:47 93 09/03/18 03:38 94 09/03/18 02:04 09/02/18 23:30 09/02/18 23:09 09/02/18 23:08 92 09/02/18 20:41 09/02/18 19:15 93 09/02/18 18:15 95 09/02/18 17:15 93 09/02/18 16:45 97 09/02/18 16:00 97 09/02/18 15:46 98 09/02/18 15:45 98 09/02/18 15:41 100 09/02/18 15:40 100 09/02/18 15:37 100 09/02/18 15:36 100 09/02/18 15:35 100 09/02/18 15:31 100 09/02/18 15:30 100 09/02/18 15:26 100 09/02/18 15:25 98 09/02/18 15:21 98 09/02/18 15:20 98 09/02/18 15:16 100 09/02/18 15:15 100 09/02/18 15:11 100 09/02/18 15:10 100 09/02/18 15:07 98 09/02/18 15:06 09/02/18 10:38 96 Notes Mental Status: alert / awake / arousable and participated in evaluation Nausea / Vomiting: adequately controlled Pain: adequately controlled Airway Patency, RR, SpO2: stable & adequate BP & HR: stable & adequate Hydration State: stable & adequate Neuraxial Anesthesia: sensory block is resolving Anesthetic Complications: Pt Satisfied with anesthetic care
[2018-09-03] MEDS ORDERED: MULTIVITAMIN TAB PO SCH (09:00)
[2018-09-03] MEDS: OXYCODONE HCL IR 5 MG TAB (IMMEDIATE RELEASE) PO PRN ×2 (09:13→21:15)
[2018-09-03] MEDS: DOCUSATE SODIUM 100 MG CAP PO SCH ×2 (09:13→20:53)
[2018-09-03] MEDS: CALCIUM 600MG + VIT D 400 IU TAB PO SCH ×2 (09:14→20:53)
[2018-09-03] MEDS: CHLORTHALIDONE 25 MG TAB PO SCH (09:14)
[2018-09-03] MEDS: ASPIRIN 81 MG ECTAB PO SCH (09:14)
[2018-09-03] MEDS: METOPROLOL TARTRATE 25 MG TAB PO SCH ×2 (09:14→20:55)
[2018-09-03] MEDS: SULFAMETHOXAZOLE/TRIMETHOPRIM DS 800/160MG TAB PO SCH ×2 (09:15→20:54)
[2018-09-03] MEDS: LISINOPRIL 10 MG TAB PO SCH (09:15)
[2018-09-03] MEDS: MULTIVITAMIN TAB PO SCH (09:15)
[2018-09-03] MEDS: PANTOprazole 40 MG TAB PO SCH (09:15)
[2018-09-03] MEDS: DOXYCYCLINE HYCLATE 100 MG CAP PO SCH (09:15)
[2018-09-03] MEDS: DULOXETINE HCL 60 MG CAP PO SCH (09:16)
--- NOTE | 2018-09-03 09:26 | Orthopedic Progress Note ---
Date of Service September 03, 2018 Assessment & Plan (1) Shoulder pain: POD #1, Left TSA, biceps tenodesis PT/ OT DVT proph- ASA D/C planning- Home w OPPT As per medicine. Subjective POD #1, doing well, denies sob, cp, n/v, pain controlled well. Physical Exam Vital Signs (Past 24 Hours): Last Vital Signs Temp 36.8 C 09/03/18 07:47 Pulse 87 09/03/18 07:47 Resp 18 09/03/18 07:47 BP 130/81 09/03/18 07:47 Pulse Ox 93 09/03/18 07:47 Physical Exam: Left shoulder dressings c/d/i, no drainage. Fingers mobile. sling in tact. A&Ox3.
[2018-09-03 09:27] LABS: Basophils # (auto) 0.01 K/uL (0-0.2); Basophils % (auto) 0.1 %; Hematocrit (blood only) 30.8 % (37-47); Hemoglobin 10.3 g/dL (12.0-16.0); Immature Granulocytes # (auto) 0.04 K/uL (0.00-0.02); Immature Granulocytes % (auto) 0.2 %; Lymphocytes % (auto) 9.9 %; Mean Corpuscular Hgb Conc 33.4 g/dL (32-36); Mean Corpuscular Volume 90.1 fL (80-100); Mean Platelet Volume 9.7 fL (7.4-10.4); Monocytes # (auto) 1.81 K/uL (0.11-0.59); Monocytes % (auto) 11.2 %; Neutrophils # (auto) 12.75 K/uL (1.4-6.5); Neutrophils % (auto) 78.6 %; Platelet Count 313 K/uL (130-400); RDW Coefficient of Variation 13.8 % (11.5-14.5); RDW Standard Deviation 45.8 fL (36.4-46.3); Red Blood Count 3.42 M/uL (4.2-5.4); White Blood Count 16.21 K/uL (4.8-10.8)
[2018-09-03 09:51] LABS: Calcium 8.2 mg/dl (8.5-10.1); Creatinine Clr Calc Pharmacy 49.5 ml/min; Est GFR (African American) 54.1; Est GFR (Non-African American) 46.7; Potassium 4.3 mmol/L (3.5-5.1)
[2018-09-03] MEDS: TRAMADOL HCL 50 MG TABLET PO PRN ×2 (10:02→16:33)
--- NOTE | 2018-09-03 13:57 | Hospitalist Progress Note ---
Date of Service September 03, 2018 Assessment & Plan (1) Shoulder pain: - S/p left shoulder arthroplasty on 09/02, POD#1. - Pain control per primary team. - DVT ppx with Aspirin 81 mg daily. - IS q1hr WA. - PT/OT ordered - plan for discharge to rehab pending placement. (2) Hyperlipidemia: - Continue home Atorvastatin and Zetia as prescribed. (3) HTN (hypertension): - Was hypotensive overnight with SBP 80's, now improved. - Continue home Metoprolol with hold parameters; Lisinopril 30 mg qAM and Chlorthalidone 25 mg qAM. (4) GERD (gastroesophageal reflux disease): - Continue PPI daily. (5) Depression: - Continue home Cymbalta and Trazodone as prescribed. (6) CHACHO (obstructive sleep apnea): - Advised to wear O2 qhs but has refused. - Has been stable on room air during this admission. (7) DVT prophylaxis: - Per ortho. Dispo: Will continue to follow, please call with any questions. Supervising Physician Co-Signing Physician Notes Attending Attestation- Chart reviewed, and care plan d/w PA Bridget Morris. I agree w/ the pinedo components of her documentation. Pt w/ transient hypotension overnight - now resolved. Labs are stable. Jose Roberto Perez MD Subjective Pt. is doing well overall. Has pain in shoulder post op following session with PT this morning. Complains of chronic SOB with exertion. Denies urinary retention. Is passing gas, no BM since admission. BP was decreased overnight, now improved. Will continue ACEI and BB as tolerated. Review of Systems All systems reviewed & are unremarkable except as noted in HPI & below Constitutional: no fever, no chills, no fatigue, no weakness and no anorexia Respiratory: no cough and no dyspnea Cardiovascular: no chest pain, no palpitations, no syncope and no edema Gastrointestinal: + constipation; no abdominal pain, no nausea and no vomiting Genitourinary (Female): no difficulty urinating Musculoskeletal: + joint pain Allergy / Immunological: no rash Physical Exam Vital Signs (Past 24 Hours): Last Vital Signs Temp 36.7 C 09/03/18 11:15 Pulse 93 H 09/03/18 11:15 Resp 18 09/03/18 11:15 BP 135/81 09/03/18 11:15 Pulse Ox 99 09/03/18 11:25 Physical Exam: General: Resting comfortably in no apparent distress; A&OX3 HEENT: NC/AT; PERRLA with EOMI; [place] conjunctiva, MMM. Neck: Supple and nontender Cardiac: RRR w/o murmurs, gallops or rubs Lungs: CTA bilaterally; No rhonchi, wheezing, or rales Abdomen: Bowel normoactive X 4; Nontender to palpation Extremities: Warm. No edema present. Left shoulder with dressing in place, did not visualize incision site. Neuro: No focal weakness Skin: No rash Results & Data Laboratory Results 09/03/18 09/03/18 Range/Units 08:59 08:59 WBC 16.21 H (4.8-10.8) K/uL RBC 3.42 L (4.2-5.4) M/uL Hgb 10.3 L (12.0-16.0) g/dL Hct 30.8 L (37-47) % MCV 90.1 (80-100) fL MCH 30.1 (25-34) pg MCHC 33.4 (32-36) g/dL RDW Std Deviation 45.8 (36.4-46.3) fL RDW Coeff of Bette 13.8 (11.5-14.5) % Plt Count 313 (130-400) K/uL MPV 9.7 (7.4-10.4) fL Immature Gran % (Auto) 0.2 % Neut % (Auto) 78.6 % Lymph % (Auto) 9.9 % [place] % (Auto) 11.2 % Eos % (Auto) 0.0 % Baso % (Auto) 0.1 % Immature Gran # (Auto) 0.04 H (0.00-0.02) K/uL Neut # (Auto) 12.75 H (1.4-6.5) K/uL Lymph # (Auto) 1.60 (1.2-3.4) K/uL Churchill # (Auto) 1.81 H (0.11-0.59) K/uL Eos # (Auto) 0.00 (0-0.5) K/uL Baso # (Auto) 0.01 (0-0.2) K/uL Sodium 140 (136-145) mmol/L Potassium 4.3 (3.5-5.1) mmol/L Chloride 106 (98-107) mmol/L Carbon Dioxide 26 (21-32) mmol/L Anion Gap 7.0 (3-11) BUN 23 H (7-18) mg/dl Creatinine 1.14 (0.6-1.2) mg/dl Est Cr Clr Drug Dosing 49.5 ml/min Est GFR ( Amer) 54.1 Est GFR (Non-Af Amer) 46.7 BUN/Creatinine Ratio 20.0 (10-20) Glucose 131 H (70-99) mg/dl Calcium 8.2 L (8.5-10.1) mg/dl
[2018-09-03] MEDS: ATORVASTATIN 40 MG TAB PO SCH (20:52)
[2018-09-03] MEDS: EZETIMIBE 10 MG TABLET PO SCH (20:52)
[2018-09-03] MEDS: TRAZODONE HCL 100 MG TAB PO SCH (20:53)
[2018-09-03] MEDS: SENNA 8.6 MG TAB PO SCH (20:54)
[2018-09-04] MEDS: OXYCODONE HCL IR 5 MG TAB (IMMEDIATE RELEASE) PO PRN ×2 (02:08→07:37)
[2018-09-04 04:40] LABS: Basophils # (auto) 0.04 K/uL (0-0.2); Basophils % (auto) 0.2 %; Eosinophils # (auto) 0.25 K/uL (0-0.5); Eosinophils % (auto) 1.5 %; Hematocrit (blood only) 28.9 % (37-47); Hemoglobin 9.5 g/dL (12.0-16.0); Immature Granulocytes # (auto) 0.05 K/uL (0.00-0.02); Immature Granulocytes % (auto) 0.3 %; Lymphocytes # (auto) 3.08 K/uL (1.2-3.4); Mean Corpuscular Hgb Conc 32.9 g/dL (32-36); Mean Corpuscular Volume 89.5 fL (80-100); Mean Platelet Volume 9.6 fL (7.4-10.4); Monocytes # (auto) 1.88 K/uL (0.11-0.59); Monocytes % (auto) 11.6 %; Neutrophils % (auto) 67.4 %; Platelet Count 307 K/uL (130-400); RDW Coefficient of Variation 14.2 % (11.5-14.5); RDW Standard Deviation 46.8 fL (36.4-46.3); Red Blood Count 3.23 M/uL (4.2-5.4)
[2018-09-04 04:48] LABS: BUN Creatinine Ratio 23.7 (10-20); Creatinine Clr Calc Pharmacy 47.9 ml/min; Est GFR (African American) 51.9; Est GFR (Non-African American) 44.8; Potassium 4.3 mmol/L (3.5-5.1)
[2018-09-04] MEDS: ACETAMINOPHEN 500 MG TAB PO SCH ×3 (06:05→21:36)
[2018-09-04] MEDS: DULOXETINE HCL 60 MG CAP PO SCH (07:38)
[2018-09-04] MEDS: ASPIRIN 81 MG ECTAB PO SCH (07:38)
[2018-09-04] MEDS: DOXYCYCLINE HYCLATE 100 MG CAP PO SCH (07:39)
[2018-09-04] MEDS: LISINOPRIL 10 MG TAB PO SCH (07:39)
[2018-09-04] MEDS: CHLORTHALIDONE 25 MG TAB PO SCH (07:39)
[2018-09-04] MEDS: MULTIVITAMIN TAB PO SCH (07:40)
[2018-09-04] MEDS: PANTOprazole 40 MG TAB PO SCH (07:40)
[2018-09-04] MEDS: METOPROLOL TARTRATE 25 MG TAB PO SCH ×2 (07:40→20:32)
[2018-09-04] MEDS: DOCUSATE SODIUM 100 MG CAP PO SCH ×2 (07:40→20:33)
[2018-09-04] MEDS: CALCIUM 600MG + VIT D 400 IU TAB PO SCH ×2 (07:41→20:33)
[2018-09-04] MEDS: SULFAMETHOXAZOLE/TRIMETHOPRIM DS 800/160MG TAB PO SCH ×2 (07:41→20:33)
--- NOTE | 2018-09-04 10:20 | Orthopedic Progress Note ---
Date of Service September 04, 2018 Assessment & Plan (1) Shoulder pain: POD #2, Left TSA, biceps tenodesis Dressing change today. PT/ OT DVT proph- ASA D/C planning- Accepted to [facility]. Needs 3 night stay for insurance reasons. To [place] Friday. As per medicine. Subjective Pt sitting up in chair at bedside. No complaints today. Pain controlled. States she's going to rehab tomorrow. Denies SOB,CP,LH. Physical Exam Vital Signs (Past 24 Hours): Last Vital Signs Temp 36.6 C 09/04/18 07:01 Pulse 78 09/04/18 07:01 Resp 18 09/04/18 07:01 BP 125/71 09/04/18 07:01 Pulse Ox 96 09/04/18 07:01 Physical Exam: Dressings C/D/I. NV intact. Good ROM of wrist/fingers. Sling in place. Results & Data Laboratory Results 09/04/18 09/04/18 Range/Units 04:08 04:08 WBC 16.20 H (4.8-10.8) K/uL RBC 3.23 L (4.2-5.4) M/uL Hgb 9.5 L (12.0-16.0) g/dL Hct 28.9 L (37-47) % MCV 89.5 (80-100) fL MCH 29.4 (25-34) pg MCHC 32.9 (32-36) g/dL RDW Std Deviation 46.8 H (36.4-46.3) fL RDW Coeff of Bette 14.2 (11.5-14.5) % Plt Count 307 (130-400) K/uL MPV 9.6 (7.4-10.4) fL Immature Gran % (Auto) 0.3 % Neut % (Auto) 67.4 % Lymph % (Auto) 19.0 % [place] % (Auto) 11.6 % Eos % (Auto) 1.5 % Baso % (Auto) 0.2 % Immature Gran # (Auto) 0.05 H (0.00-0.02) K/uL Neut # (Auto) 10.90 H (1.4-6.5) K/uL Lymph # (Auto) 3.08 (1.2-3.4) K/uL [place] # (Auto) 1.88 H (0.11-0.59) K/uL Eos # (Auto) 0.25 (0-0.5) K/uL Baso # (Auto) 0.04 (0-0.2) K/uL Sodium 138 (136-145) mmol/L Potassium 4.3 (3.5-5.1) mmol/L Chloride 106 (98-107) mmol/L Carbon Dioxide 27 (21-32) mmol/L Anion Gap 5.0 (3-11) BUN 28 H (7-18) mg/dl Creatinine 1.18 (0.6-1.2) mg/dl Est Cr Clr Drug Dosing 47.9 ml/min Est GFR ( Amer) 51.9 Est GFR (Non-Af Amer) 44.8 BUN/Creatinine Ratio 23.7 H (10-20) Glucose 128 H (70-99) mg/dl Calcium 8.0 L (8.5-10.1) mg/dl
--- NOTE | 2018-09-04 18:06 | Hospitalist Progress Note ---
Date of Service September 04, 2018 Assessment & Plan (1) Shoulder pain: - S/p left shoulder arthroplasty on 09/02, POD#2. - Pain control per primary team. - DVT ppx with Aspirin 81 mg daily. - IS q1hr WA. - PT/OT ordered - plan for discharge to rehab on 09/05. (2) Hyperlipidemia: - Continue home Atorvastatin and Zetia as prescribed. (3) HTN (hypertension): - Continue home Metoprolol, Lisinopril and Chlorthalidone. (4) GERD (gastroesophageal reflux disease): - Continue PPI daily. (5) Depression: - Continue home Cymbalta and Trazodone as prescribed. (6) CHACHO (obstructive sleep apnea): - Advised to wear O2 qhs but has refused. - Has been stable on room air during this admission. (7) Anemia: - Hgb decreased to 9.5 post op - likely related to intra op bleeding. - Monitor CBC qAM. (8) Rosacea: continue doxycycline Unclear why she is on Bactrim?? Will find out (9) DVT prophylaxis: - Per ortho. Dispo: Will continue to follow, please call with any questions. Supervising Physician Co-Signing Physician Notes PA Supervision Note: I did not personally see or examine the patient today, but I verified all pinedo points of RAMONA White's assessment and plan with the following exceptions/additions: None Unclear why patient is on Bactrim...need to find out why and discontinue if not necessary. My guess is that she was treated for a preop UTI/abnormal UA and Bactrim never got taken off the med list. Subjective Pt. is doing well overall. Denies severe pain in left shoulder. Denies chest pain, SOB. Has not had a BM but is passing gas. Review of Systems All systems reviewed & are unremarkable except as noted in HPI & below Constitutional: no fever, no chills, no fatigue and no weakness Respiratory: no cough and no dyspnea Cardiovascular: no chest pain, no palpitations and no edema Gastrointestinal: + constipation; no abdominal pain, no nausea, no vomiting and no diarrhea/loose stools Genitourinary (Female): no difficulty urinating Musculoskeletal: + joint pain Allergy / Immunological: no rash Physical Exam Vital Signs (Past 24 Hours): Last Vital Signs Temp 36.7 C 09/04/18 15:32 Pulse 82 09/04/18 15:32 Resp 16 09/04/18 15:32 BP 126/82 09/04/18 15:32 Pulse Ox 99 09/04/18 15:32 Physical Exam: General: Resting comfortably in no apparent distress; A&OX3 HEENT: NC/AT; PERRLA with EOMI; [place] conjunctiva, MMM. Neck: Supple and nontender Cardiac: RRR w/o murmurs, gallops or rubs Lungs: CTA bilaterally; No rhonchi, wheezing, or rales Abdomen: Bowel normoactive X 4; Nontender to palpation Extremities: Warm. No edema present. Left shoulder with dressing in place. Neuro: No focal weakness Skin: No rash Results & Data Laboratory Results 09/04/18 09/04/18 Range/Units 04:08 04:08 WBC 16.20 H (4.8-10.8) K/uL RBC 3.23 L (4.2-5.4) M/uL Hgb 9.5 L (12.0-16.0) g/dL Hct 28.9 L (37-47) % MCV 89.5 (80-100) fL MCH 29.4 (25-34) pg MCHC 32.9 (32-36) g/dL RDW Std Deviation 46.8 H (36.4-46.3) fL RDW Coeff of Bette 14.2 (11.5-14.5) % Plt Count 307 (130-400) K/uL MPV 9.6 (7.4-10.4) fL Immature Gran % (Auto) 0.3 % Neut % (Auto) 67.4 % Lymph % (Auto) 19.0 % [place] % (Auto) 11.6 % Eos % (Auto) 1.5 % Baso % (Auto) 0.2 % Immature Gran # (Auto) 0.05 H (0.00-0.02) K/uL Neut # (Auto) 10.90 H (1.4-6.5) K/uL Lymph # (Auto) 3.08 (1.2-3.4) K/uL [place] # (Auto) 1.88 H (0.11-0.59) K/uL Eos # (Auto) 0.25 (0-0.5) K/uL Baso # (Auto) 0.04 (0-0.2) K/uL Sodium 138 (136-145) mmol/L Potassium 4.3 (3.5-5.1) mmol/L Chloride 106 (98-107) mmol/L Carbon Dioxide 27 (21-32) mmol/L Anion Gap 5.0 (3-11) BUN 28 H (7-18) mg/dl Creatinine 1.18 (0.6-1.2) mg/dl Est Cr Clr Drug Dosing 47.9 ml/min Est GFR ( Amer) 51.9 Est GFR (Non-Af Amer) 44.8 BUN/Creatinine Ratio 23.7 H (10-20) Glucose 128 H (70-99) mg/dl Calcium 8.0 L (8.5-10.1) mg/dl
[2018-09-04] MEDS: TRAZODONE HCL 100 MG TAB PO SCH (20:32)
[2018-09-04] MEDS: ATORVASTATIN 40 MG TAB PO SCH (20:33)
[2018-09-04] MEDS: EZETIMIBE 10 MG TABLET PO SCH (20:33)
[2018-09-04] MEDS: SENNA 8.6 MG TAB PO SCH (20:33)
[2018-09-05] MEDS: ACETAMINOPHEN 500 MG TAB PO SCH (05:50)
[2018-09-05 07:23] LABS: Hematocrit (blood only) 32.6 % (37-47); Hemoglobin 10.7 g/dL (12.0-16.0); Mean Corpuscular Hgb Conc 32.8 g/dL (32-36); Mean Corpuscular Volume 90.6 fL (80-100); Mean Platelet Volume 9.7 fL (7.4-10.4); Platelet Count 308 K/uL (130-400); RDW Coefficient of Variation 14.1 % (11.5-14.5); RDW Standard Deviation 46.7 fL (36.4-46.3); White Blood Count 14.17 K/uL (4.8-10.8)
[2018-09-05 08:00] LABS: BUN Creatinine Ratio 22.1 (10-20); Calcium 8.6 mg/dl (8.5-10.1); Creatinine Clr Calc Pharmacy 48.3 ml/min; Est GFR (African American) 52.4; Est GFR (Non-African American) 45.2; Potassium 4.5 mmol/L (3.5-5.1)
--- NOTE | 2018-09-05 08:06 | Orthopedic Progress Note ---
Date of Service September 05, 2018 Assessment & Plan (1) Shoulder pain: POD #3, Left TSA, biceps tenodesis PT/ OT DVT proph- ASA D/C planning- Accepted to [facility]. To [place] today As per medicine. Subjective Patient is resting in bed. Doing well, no complaints. Denies CP, SOB, dizziness/lightheadedness. Planning for DC today to rehab. Physical Exam Vital Signs (Past 24 Hours): Last Vital Signs Temp 36.5 C 09/04/18 22:32 Pulse 74 09/04/18 22:32 Resp 16 09/04/18 22:32 BP 129/77 09/04/18 22:32 Pulse Ox 96 09/04/18 22:32 Fingers mobile. no numbness/tingling. Dressing clean dry intact.
[2018-09-05] MEDS: CALCIUM 600MG + VIT D 400 IU TAB PO SCH (08:38)
[2018-09-05] MEDS: DOCUSATE SODIUM 100 MG CAP PO SCH (08:38)
[2018-09-05] MEDS: DULOXETINE HCL 60 MG CAP PO SCH (08:39)
[2018-09-05] MEDS: CHLORTHALIDONE 25 MG TAB PO SCH (08:39)
[2018-09-05] MEDS: ASPIRIN 81 MG ECTAB PO SCH (08:39)
[2018-09-05] MEDS: LISINOPRIL 10 MG TAB PO SCH (08:40)
[2018-09-05] MEDS: DOXYCYCLINE HYCLATE 100 MG CAP PO SCH (08:40)
[2018-09-05] MEDS: SULFAMETHOXAZOLE/TRIMETHOPRIM DS 800/160MG TAB PO SCH (08:40)
[2018-09-05] MEDS: MULTIVITAMIN TAB PO SCH (08:40)
[2018-09-05] MEDS: PANTOprazole 40 MG TAB PO SCH (08:40)
[2018-09-05] MEDS: METOPROLOL TARTRATE 25 MG TAB PO SCH (08:40)
--- NOTE | 2018-09-05 13:00 | Hospitalist Progress Note ---
Date of Service September 05, 2018 Assessment & Plan (1) Shoulder pain: - S/p left shoulder arthroplasty on 09/02, POD#3. - Pain control per primary team. - DVT ppx with Aspirin 81 mg daily. - IS q1hr WA. - PT/OT ordered - discharged to [facility] today. (2) Hyperlipidemia: - Continue home Atorvastatin and Zetia as prescribed. (3) HTN (hypertension): - Continue home Metoprolol, Lisinopril and Chlorthalidone. (4) GERD (gastroesophageal reflux disease): - Continue PPI daily. (5) Depression: - Continue home Cymbalta and Trazodone as prescribed. (6) CHACHO (obstructive sleep apnea): - Advised to wear O2 qhs but has refused. - Has been stable on room air during this admission. (7) Anemia: - Hgb decreased post op - likely related to intra op bleeding. - Monitor CBC (8) Rosacea: - Plan to resume Doxycyline following completion of Bactrim course. (9) UTI (urinary tract infection): - U/a during preop workup was positive for bacteria and leuk est; started on Bactrim for coverage. - UC showed more than three types of organisms. - Will continue Bactrim per ortho to complete course of abx. (10) DVT prophylaxis: - Per ortho. Dispo: Will sign off, patient is stable for discharge to [facility]. Supervising Physician Co-Signing Physician Notes PA Supervision Note: I did not personally see or examine the patient today, but I verified all pinedo points of RAMONA White's assessment and plan with the following exceptions/additions: None Subjective Pt. was doing well post op, is currently day #3. Has mild left shoulder pain. Has not had a BM but is passing gas -- encouraged her to continue stool softeners and laxatives following discharge to [facility]. Denies chest pain, SOB, urinary retention. Review of Systems All systems reviewed & are unremarkable except as noted in HPI & below Constitutional: no fever, no chills, no fatigue and no weakness Respiratory: no cough and no dyspnea Cardiovascular: no chest pain, no palpitations and no edema Gastrointestinal: + constipation; no abdominal pain, no bloating, no nausea and no vomiting Genitourinary (Female): no difficulty urinating Musculoskeletal: + joint pain; no back pain Allergy / Immunological: no rash Physical Exam Vital Signs (Past 24 Hours): Last Vital Signs Temp 36.8 C 09/05/18 08:58 Pulse 80 09/05/18 08:58 Resp 18 09/05/18 08:58 BP 177/76 H 09/05/18 08:58 Pulse Ox 98 09/05/18 08:58 Physical Exam: General: Resting comfortably in no apparent distress; A&OX3 HEENT: NC/AT; PERRLA with EOMI; [place] conjunctiva, MMM. Neck: Supple and nontender Cardiac: RRR w/o murmurs, gallops or rubs Lungs: CTA bilaterally; No rhonchi, wheezing, or rales Abdomen: Bowel normoactive X 4; Nontender to palpation Extremities: Warm. No edema present. Left shoulder with dressing in place. Neuro: No focal weakness Skin: No rash Results & Data Laboratory Results 09/05/18 09/05/18 Range/Units 06:49 06:49 WBC 14.17 H (4.8-10.8) K/uL RBC 3.60 L (4.2-5.4) M/uL Hgb 10.7 L (12.0-16.0) g/dL Hct 32.6 L (37-47) % MCV 90.6 (80-100) fL MCH 29.7 (25-34) pg MCHC 32.8 (32-36) g/dL RDW Std Deviation 46.7 H (36.4-46.3) fL RDW Coeff of Bette 14.1 (11.5-14.5) % Plt Count 308 (130-400) K/uL MPV 9.7 (7.4-10.4) fL Sodium 137 (136-145) mmol/L Potassium 4.5 (3.5-5.1) mmol/L Chloride 105 (98-107) mmol/L Carbon Dioxide 27 (21-32) mmol/L Anion Gap 5.0 (3-11) BUN 26 H (7-18) mg/dl Creatinine 1.17 (0.6-1.2) mg/dl Est Cr Clr Drug Dosing 48.3 ml/min Est GFR ( Amer) 52.4 Est GFR (Non-Af Amer) 45.2 BUN/Creatinine Ratio 22.1 H (10-20) Glucose 96 (70-99) mg/dl Calcium 8.6 (8.5-10.1) mg/dl
--- NOTE | 2018-09-07 11:42 | Discharge Summary ---
Date of Service September 09, 2018 Discharge Data Consultations 08/27/18 12:46 Consult Hospitalist Routine 09/02/18 16:28 Consult Case Management - Discharge Planning Routine Consult Hospitalist Routine Procedures Performed Operation Date: 09/02/18 13:00 Actual Procedures p Left Shoulder: Total Shoulder Arthroplasty (Cemented) with Bursectomy and Biceps Tenodesis(Left) - Corey Bansal MD
--- NOTE | 2018-09-09 05:15 | Discharge Summary ---
DISCHARGE DIAGNOSES: Left shoulder osteoarthritis, subacromial bursitis, biceps tendinopathy, obesity. SECONDARY DIAGNOSES: Hypertension, hypercholesterolemia, anxiety, sciatica, history of breast carcinoma. CONSULTS: Suze Davis DO COMPLICATIONS: None. PROCEDURES: Left total shoulder arthroplasty with subacromial bursectomy and biceps tenodesis by Dr. Bansal on 09/02/2018. BRIEF HISTORY: As dictated in the history and physical. HOSPITAL SUMMARY: The patient was admitted on the above-noted date and had the above-noted surgery performed, which she tolerated well. On the first postoperative day, the patient was doing well. Denied shortness of breath, chest pain or nausea, vomiting. Pain was controlled. Vital signs were stable. She was afebrile. Left shoulder dressings were intact and dry. Fingers were mobile. Sling was intact. She was alert and oriented x3. She was started on physical therapy protocol, continued on DVT prophylaxis and pain management. Plans were for discharge to home with outpatient PT. Medicine service had been continued to follow the patient during her stay. By her second postoperative day, she was sitting up in a chair at the bedside. No complaints. Pain was controlled and stated that she was going to possibly go to rehab instead of home. She had no complaints. Vital signs were stable. She was afebrile. Dressings clean, dry and intact. Neurovascular vas intact. She had good range of motion of her wrist and fingers. Sling was in place. Hemoglobin was 9.5 and she was continued on her protocol. She had been accepted to [facility], and by 09/05/2018, the patient was doing well without complaints, remaining medically stable. Vital signs were stable. She was afebrile. Dressings were remaining intact. She was progressing with her PT and it was felt she could be transferred to [facility] for further physical therapy and care. For further review, please see chart. LABORATORY AND X-RAY DATA: As per chart. DISCHARGE INSTRUCTIONS: The patient was discharged to [facility] on 09/05/2018. Diet: Regular. Activity: Nonweightbearing, left upper extremity. Follow TSA instruction sheets and special care instructions as noted. Follow up with Dr. Bansal in 2 weeks. The patient is to call for appointment if one has not made for you. DISCHARGE MEDICATIONS: Acetaminophen 1000 mg p.o. q. 8 hours, Colace 100 mg p.o. b.i.d., oxycodone 5 mg p.o. q. 4 hours p.r.n., MiraLax 17 grams p.o. daily, Bactrim 1 tab p.o. b.i.d. Resume home meds as listed. Stop taking previous Tylenol Arthritis, doxycycline and tramadol.
== END 2018-09-05 10:15 ==
LOC: ASU 09:57 → 3N 15:11

== ENCOUNTER 2023-09-04 10:47 | Inpatient (IN) ==
--- NOTE | 2023-08-05 12:25 | PAT Medication Instructions ---
Medication Instructions Date of Service August 05, 2023 Home Medications Medication Instructions Recorded aspirin 81 mg tablet,delayed 81 mg PO QAM #90 tabs 02/18/19 release calcium citrate 315 mg 1 tab PO BID #180 tabs 02/18/19 calcium-vitamin D3 6.25 mcg (250 unit) tablet (Citracal + Vitamin D Maximum) multivitamin 1 tab PO QAM #90 tabs 02/18/19 albuterol sulfate 90 mcg/actuation 2 puff inhalation Q6H PRN 12/25/22 aerosol inhaler (Ventolin HFA) shortness of breath or wheezing #8.5 grams inhalational spacing device #10 ea 12/25/22 (Aerochamber MV spacer) metoprolol tartrate 25 mg tablet See Rx Instructions .Route 12/25/22 .COMPLEX #270 tabs tramadol 50 mg tablet 100 mg (2 x 50 mg) PO Q12H PRN 02/12/23 pain #60 tabs RSVPreF3 antigen-AS01E 0.5 ml IM ONCE #1 ea 07/22/23 adjuvant(PF) 120 mcg/0.5 mL IM suspension, kit (Arexvy (PF)) atorvastatin 80 mg tablet 80 mg PO HS #90 tabs 07/22/23 budesonide-formoterol HFA 160 2 puff inhalation BID #30.6 grams 07/22/23 mcg-4.5 mcg/actuation aerosol inhaler (Symbicort) bupropion HCl 300 mg 24 hr tablet, 300 mg PO QAM #90 tabs 07/22/23 extended release cetirizine 10 mg tablet 10 mg PO HS #30 tabs 07/22/23 ezetimibe 10 mg tablet 10 mg PO HS #90 tabs 07/22/23 fluticasone propionate 50 2 spray intranasal HS #9.9 grams 07/22/23 mcg/actuation nasal spray,suspension (Allergy Relief (fluticasone)) aspirin 81 mg tablet,delayed release 81 mg PO QAM calcium citrate 315 mg calcium-vitamin D3 6.25 mcg (250 unit) tablet (Citracal + Vitamin D Maximum) 1 tab PO BID multivitamin 1 tab PO QAM albuterol sulfate 90 mcg/actuation aerosol inhaler (Ventolin HFA) 2 puff inhalation Q6H PRN shortness of breath or wheezing metoprolol tartrate 25 mg tablet See Rx Instructions tramadol 50 mg tablet 100 mg (2 x 50 mg) PO Q12H PRN pain RSVPreF3 antigen-AS01E adjuvant(PF) 120 mcg/0.5 mL IM suspension, kit (Arexvy (PF)) 0.5 ml IM ONCE atorvastatin 80 mg tablet 80 mg PO HS budesonide-formoterol HFA 160 mcg-4.5 mcg/actuation aerosol inhaler (Symbicort) 2 puff inhalation BID bupropion HCl 300 mg 24 hr tablet, extended release 300 mg PO QAM cetirizine 10 mg tablet 10 mg PO HS ezetimibe 10 mg tablet 10 mg PO HS fluticasone propionate 50 mcg/actuation nasal spray,suspension (Allergy Relief (fluticasone)) 2 spray intranasal HS amlodipine 5 mg tablet 5 mg PO QAM aspirin 650 mg tablet,delayed release 650 mg PO Q4H PRN Pain candesartan 32 mg tablet 32 mg PO QAM cholecalciferol (vitamin D3) 25 mcg (1,000 unit) capsule 1,000 units PO QAM duloxetine 20 mg capsule,delayed release 20 mg PO QAM folic acid 400 mcg tablet 0.8 mg PO QAM magnesium oxide 500 mg PO QAM omega-3 fatty acids 1,000 mg capsule 1,000 mg PO QAM Continue as directed RSVPreF3 antigen-AS01E adjuvant(PF) 120 mcg/0.5 mL IM suspension, kit (Arexvy (PF)) 0.5 ml IM ONCE ASK your surgeon for instructions aspirin 650 mg tablet,delayed release 650 mg PO Q4H PRN Pain STOP taking 2 weeks before surgery omega-3 fatty acids 1,000 mg capsule 1,000 mg PO QAM DO NOT take the morning of surgery calcium citrate 315 mg calcium-vitamin D3 6.25 mcg (250 unit) tablet (Citracal + Vitamin D Maximum) 1 tab PO BID multivitamin 1 tab PO QAM candesartan 32 mg tablet 32 mg PO QAM cholecalciferol (vitamin D3) 25 mcg (1,000 unit) capsule 1,000 units PO QAM folic acid 400 mcg tablet 0.8 mg PO QAM magnesium oxide 500 mg PO QAM Take morning of surgery With a small sip of water, OTHERWISE NOTHING TO EAT OR DRINK AFTER MIDNIGHT: aspirin 81 mg tablet,delayed release 81 mg PO QAM (unless surgeon directed otherwise) albuterol sulfate 90 mcg/actuation aerosol inhaler (Ventolin HFA) 2 puff inhalation Q6H PRN shortness of breath or wheezing (use if needed; please bring with you to hospital day of surgery if possible) metoprolol tartrate 25 mg tablet See Rx Instructions tramadol 50 mg tablet 100 mg (2 x 50 mg) PO Q12H PRN pain (if needed) budesonide-formoterol HFA 160 mcg-4.5 mcg/actuation aerosol inhaler (Symbicort) 2 puff inhalation BID bupropion HCl 300 mg 24 hr tablet, extended release 300 mg PO QAM amlodipine 5 mg tablet 5 mg PO QAM duloxetine 20 mg capsule,delayed release 20 mg PO QAM Take evening before surgery calcium citrate 315 mg calcium-vitamin D3 6.25 mcg (250 unit) tablet (Citracal + Vitamin D Maximum) 1 tab PO BID albuterol sulfate 90 mcg/actuation aerosol inhaler (Ventolin HFA) 2 puff inhalation Q6H PRN shortness of breath or wheezing (if needed) metoprolol tartrate 25 mg tablet See Rx Instructions tramadol 50 mg tablet 100 mg (2 x 50 mg) PO Q12H PRN pain (if needed) atorvastatin 80 mg tablet 80 mg PO HS budesonide-formoterol HFA 160 mcg-4.5 mcg/actuation aerosol inhaler (Symbicort) 2 puff inhalation BID cetirizine 10 mg tablet 10 mg PO HS ezetimibe 10 mg tablet 10 mg PO HS fluticasone propionate 50 mcg/actuation nasal spray,suspension (Allergy Relief (fluticasone)) 2 spray intranasal HS Other Notes If you have any questions please call us at [phone] or [phone] or [phone] or [phone]
--- NOTE | 2023-08-29 10:56 | Anesthesiology Consultation ---
Date of Service August 29, 2023 Assessment & Plan (1) Encounter for pre-operative examination: - Infectious disease screening: Per assessment on 08/29/23: No known infectious disease contacts or current infectious disease symptoms. No noted recent Covid positive test result. - S/P Left shoulder TSA with subacromial bursectomy and Biceps Tenodesis (11/02/18): Grade 2 view, MAC#3, ETT 7.5 + [place] [facility] [place] "Hyperlipidemia.. on Zetia and atorvastatin daily. 12/2022 Chol 183 LDL 120. Recheck Direct LDL.. Depression.. Resolved on Bupropion ER 300 mg a day and Duloxetine 20 mg a day.. Hypertension, benign.. Well controlled on Candesarten 32 mg a day and amlodipine 5 mg a day. Check BMP.. Allergic rhinitis.. Cetirizine 10 mg p.o. at bedtime.. fluticasone nasal spray two sprays each nostril bedtime.. Plan.. Asthma well controlled on Symbicort w prn use albuterol at most 3-4 times a week. FLU shot 04/2023.. Post menopausal bleeding s/p endometrial ablation by hysteroscopy resolved. Arexvy vaccine to be gotten at her pharmacy.. Follow Up: 6 Months" - LUE limb restriction Chart Review Chart Review: Acceptable Risk for Surgery and Patient seen in Pre Admission Testing Teaching & Discussion Pre-Anesthesia Teaching/Discussion Notes: Instructed NPO after midnight before surgery,except medications with 15 cc of water. Medication instructions provided according to the PAT guidelines. History Surgery Operation Date: 09/04/23 09:20 Proposed Procedures p Right Shoulder Reverse Total Shoulder Arthroplasty Bursectomy Biceps Tenodesis - Corey Bansal MD Height/Weight Height: 5 ft 3.5 in Weight: 94.8 kg Allergies Allergy/AdvReac Type Severity Reaction Status Date / Time clonidine Allergy Mild Unknown Verified 08/05/23 10:35 Penicillins Allergy Unknown Noted Verified 08/27/23 10:21 since childhood, unknown details NSAIDS (Non-Steroidal Allergy Unknown Verified 08/05/23 10:35 Anti-Inflamma metronidazole AdvReac Mild Nausea Verified 08/27/23 10:21 Medications Home Medications Medication Instructions Recorded Confirmed Last Taken aspirin 81 mg tablet,delayed 81 mg PO QAM #90 tabs 02/18/19 08/05/23 Unknown release calcium citrate 315 mg 1 tab PO BID #180 tabs 02/18/19 08/05/23 Unknown calcium-vitamin D3 6.25 mcg (250 unit) tablet (Citracal + Vitamin D Maximum) multivitamin 1 tab PO QAM #90 tabs 02/18/19 08/05/23 Unknown albuterol sulfate 90 mcg/actuation 2 puff inhalation Q6H PRN 12/25/22 08/05/23 Unknown aerosol inhaler (Ventolin HFA) shortness of breath or wheezing #8.5 grams inhalational spacing device #10 ea 12/25/22 07/22/23 Unknown (Aerochamber MV spacer) metoprolol tartrate 25 mg tablet See Rx Instructions .Route 12/25/22 08/05/23 Unknown .COMPLEX #270 tabs RSVPreF3 antigen-AS01E 0.5 ml IM ONCE #1 ea 07/22/23 07/22/23 Unknown adjuvant(PF) 120 mcg/0.5 mL IM suspension, kit (Arexvy (PF)) atorvastatin 80 mg tablet 80 mg PO HS #90 tabs 07/22/23 08/05/23 Unknown budesonide-formoterol HFA 160 2 puff inhalation BID #30.6 grams 07/22/23 08/05/23 Unknown mcg-4.5 mcg/actuation aerosol inhaler (Symbicort) bupropion HCl 300 mg 24 hr tablet, 300 mg PO QAM #90 tabs 07/22/23 08/05/23 Unknown extended release cetirizine 10 mg tablet 10 mg PO HS #30 tabs 07/22/23 08/05/23 Unknown ezetimibe 10 mg tablet 10 mg PO HS #90 tabs 07/22/23 08/05/23 Unknown fluticasone propionate 50 2 spray intranasal HS #9.9 grams 07/22/23 08/05/23 Unknown mcg/actuation nasal spray,suspension (Allergy Relief (fluticasone)) amlodipine 5 mg tablet 5 mg PO QAM 08/05/23 08/05/23 Unknown aspirin 650 mg tablet,delayed 650 mg PO Q4H PRN Pain 08/05/23 08/05/23 Unknown release candesartan 32 mg tablet 32 mg PO QAM 08/05/23 08/05/23 Unknown cholecalciferol (vitamin D3) 25 1,000 units PO QAM 08/05/23 08/05/23 Unknown mcg (1,000 unit) capsule duloxetine 20 mg capsule,delayed 20 mg PO QAM 08/05/23 08/05/23 Unknown release omega-3 fatty acids 1,000 mg 1,000 mg PO QAM 08/05/23 08/05/23 Unknown capsule folic acid 400 mcg tablet 0.8 mg (2 x 400 mcg) PO QAM #180 08/18/23 Unknown tabs magnesium oxide 500 mg PO QAM #90 tabs 08/18/23 Unknown tramadol 50 mg tablet 100 mg (2 x 50 mg) PO Q12H PRN 08/18/23 Unknown pain #60 tabs Past Medical History Medical History Asthma Chronic back pain COPD (chronic obstructive pulmonary disease) Depression with anxiety GERD (gastroesophageal reflux disease) Hearing deficit Right ear [id number] History of breast cancer 2012, Left breast Hx lumpectomy + radiation LUE limb restrictions History of hepatitis Type A (food related) as teen, treated Hyperlipidemia Hypertension Incontinence Chronic urinary + bowel incontinence x years, unchanged (wears depends) Occasional urinary, rare bowel Insomnia Lumbar radiculopathy Obesity (BMI 30-39.9) CHACHO (obstructive sleep apnea) Per records, pt denies Sciatica Spinal stenosis Exercise / Class Metabolic Activity III < 4 Walking/Shop/Light housework Past Family History Family History Father Family history of diabetes mellitus Coronary heart disease s/p MT Myocardial infarction Mother Coronary heart disease s/p MT Myocardial infarction Aunt Breast cancer Brother , PE unprovoked age 38 Pulmonary embolism Other No family history of adverse response to anesthesia Denies family history of Ovarian cancer Prostate cancer Colorectal cancer Past Surgical History Surgical History History of abdominal surgery Open, scar tissue removal History of appendectomy History of breast biopsy Left History of cataract surgery History of cholecystectomy History of colonoscopy Hx polypectomy History of esophagogastroduodenoscopy (EGD) History of foot surgery Right History of laminectomy Lumbar History of left shoulder replacement Left shoulder TSA with subacromial bursectomy and Biceps Tenodesis (11/02/18): Grade 2 view, MAC#3, ETT 7.5 + regional at [facility] History of lumpectomy History of ovarian cystectomy History of thumb surgery BL History of tonsillectomy History of total hip arthroplasty BL Past Anesthesia History No Hx of Anesthesia Complications and No Family Hx of Anesthesia Complications History of PONV No Hx of PONV and No Hx of Motion Sickness Social History Smoking Status: Never smoker Do You Dip or Chew Tobacco: No Hx Alcohol Use: No Hx Substance Use: No substance use type: does not use Review of Systems Patient denies chest pain, shortness of breath, fever, chills, cough, wheezing, palpitations. Physical Exam Vital Signs BP 115/69 P 69 TEMP 98.4 SP02 95%RA RESP 18 Physical Full cervical extension range of motion. Full TMJ range of motion. TMD > 3.5 finger breaths Mallampati Score 1 Dentition: no upper teeth, lower front crowns, several missing lower sides/molars Lungs: clear throughout to auscultation Cardiac: regular rate and rhythm, no murmurs noted Spine: normal Carotid arteries: negative bruit Extremities: no LE edema Lab Results Anesthesia Preop Results Results Anesthesia Widget: WBC 11.06 K/ul (4.8-10.8) H 08/29/23 Hgb 13.7 g/dl (12.0-16.0) 08/29/23 Hct 41.1 % (37.0-47.0) 08/29/23 Plt 372 K/uL (130-400) 08/29/23 Na 141 mmol/L (136-145) 07/22/23 K 4.1 mmol/L (3.5-5.1) 07/22/23 Cl 105 mmol/L (98-107) 07/22/23 CO2 24 mmol/L (21-32) 07/22/23 BUN 17 mg/dl (6-23) 07/22/23 Creat 0.93 mg/dl (0.6-1.2) 07/22/23 Glucose Level 82 mg/dl (70-99(Fasting)) 07/22/23 PT 10.4 Seconds (9.0-12.0) 08/29/23 PTT 25 Seconds (21-31) 08/29/23 INR 0.9 (0.9-1.1) 08/29/23 Urine Color Dark Yellow 08/29/23 Urine Appearance Cloudy (Clear) A 08/29/23 Urine pH 6.5 (4.5-7.5) 08/29/23 Urine Specific [place] 1.021 (1.000-1.030) 08/29/23 Urine Protein Negative (Negative) 08/29/23 Urine Glucose (UA) Negative (Negative) 08/29/23 Urine Ketones Negative (Negative) 08/29/23 Urine Blood Negative (Negative) 08/29/23 Urine Nitrite Positive (Negative) A 08/29/23 Urine Bilirubin Negative (Negative) 08/29/23 Urine Urobilinogen Negative (Negative) 08/29/23 Urine Leukocyte Esterase 2+ (Negative) H 08/29/23 Urine WBC (Auto) >30 /hpf (0-5) H 08/29/23 Urine RBC (Auto) 5-10 /hpf (0-4) H 08/29/23 Urine Hyaline Casts (Auto) 1-5 /lpf (0-5) 08/29/23 Urine Epithelial Cells (Auto) >30 /lpf (0-5) H 08/29/23 Urine Bacteria (Auto) 4+ (Negative) H 08/29/23 Blood Type O Positive 08/29/23 Antibody Screen NEGATIVE 08/29/23 Testing Laboratory Results *Surgeon's office made aware of elevated WBC + abnormal UA* Electrocardiogram Date: 08/29/23 NSR at 69bpm. Low voltage QRS. PRWP, consider anterior MT vs lead placements vs LVH. No significant change compared to 08/24/2018 per private detective comparison. Chest X-Ray Date: 08/29/23 FINDINGS: Left shoulder arthroplasty is seen. Calcified aortic knob is seen. The lungs are clear. No evidence of pleural effusion or pneumothorax. IMPRESSION: No acute chest disease. Echocardiogram Date: 10/19/21 LVEF 55-59%. Moderate AR. Mild MR/TR. Trivial circumferential pericardial effusion noted. Grade I DD. Mild LAE.
--- NOTE | 2023-09-03 07:11 | History & Physical Report ---
Date of Service September 03, 2023 Assessment & Plan (1) Primary osteoarthritis, right shoulder: Plan: Treatment options discussed with the patient and they wish to proceed with surgery. Risks, benefits and alternatives to surgery including but not limited to infection, DVT, pain, stiffness, need for revision surgery, damage to blood vessels, damage to nerves, PE, , were discussed with the patient and they wish to proceed. Plan for right total shoulder arthroplasty, subacromial bursectomy, biceps tenodesis scheduled for [facility] on September [address] Bansal. Plan on inpatient rehab postop. All questions answered. She will follow-up postop. History of Present Illness Chief Complaint: Right shoulder pain Primary Care Provider: Hever Neal MD 82-year-old female with past medical history significant for COPD, CHACHO, hypertension who presents with ongoing right shoulder pain. Pain is interfering with her daily activities. She has failed conservative measures and would like to proceed with surgical intervention. Patient denies headaches, sweats, fevers, chills, double vision, blurred vision, cough, sore throat, dysphagia, chest pain, sob, wheezing, n/v/d/c, numbness, tingling, fatigue, urinary symptoms, mood disorders. ROS positive for right shoulder pain and stiffness. Allergies Allergy/AdvReac Type Severity Reaction Status Date / Time clonidine Allergy Mild Unknown Verified 08/05/23 10:35 Penicillins Allergy Unknown Noted Verified 08/27/23 10:21 since childhood, unknown details NSAIDS (Non-Steroidal Allergy Unknown Verified 08/05/23 10:35 Anti-Inflamma metronidazole AdvReac Mild Nausea Verified 08/27/23 10:21 Home Medications Medication Instructions Recorded Confirmed Type aspirin 81 mg tablet,delayed 81 mg PO QAM #90 tabs 02/18/19 08/05/23 Rx release calcium citrate 315 mg 1 tab PO BID #180 tabs 02/18/19 08/05/23 Rx calcium-vitamin D3 6.25 mcg (250 unit) tablet (Citracal + Vitamin D Maximum) multivitamin 1 tab PO QAM #90 tabs 02/18/19 08/05/23 Rx albuterol sulfate 90 mcg/actuation 2 puff inhalation Q6H PRN 12/25/22 08/05/23 Rx aerosol inhaler (Ventolin HFA) shortness of breath or wheezing #8.5 grams inhalational spacing device #10 ea 12/25/22 07/22/23 Rx (Aerochamber MV spacer) metoprolol tartrate 25 mg tablet See Rx Instructions .Route 12/25/22 08/05/23 Rx .COMPLEX #270 tabs RSVPreF3 antigen-AS01E 0.5 ml IM ONCE #1 ea 07/22/23 07/22/23 Rx adjuvant(PF) 120 mcg/0.5 mL IM suspension, kit (Arexvy (PF)) atorvastatin 80 mg tablet 80 mg PO HS #90 tabs 07/22/23 08/05/23 Rx budesonide-formoterol HFA 160 2 puff inhalation BID #30.6 grams 07/22/23 08/05/23 Rx mcg-4.5 mcg/actuation aerosol inhaler (Symbicort) bupropion HCl 300 mg 24 hr tablet, 300 mg PO QAM #90 tabs 07/22/23 08/05/23 Rx extended release cetirizine 10 mg tablet 10 mg PO HS #30 tabs 07/22/23 08/05/23 Rx ezetimibe 10 mg tablet 10 mg PO HS #90 tabs 07/22/23 08/05/23 Rx fluticasone propionate 50 2 spray intranasal HS #9.9 grams 07/22/23 08/05/23 Rx mcg/actuation nasal spray,suspension (Allergy Relief (fluticasone)) amlodipine 5 mg tablet 5 mg PO QAM 08/05/23 08/05/23 History aspirin 650 mg tablet,delayed 650 mg PO Q4H PRN Pain 08/05/23 08/05/23 History release candesartan 32 mg tablet 32 mg PO QAM 08/05/23 08/05/23 History cholecalciferol (vitamin D3) 25 1,000 units PO QAM 08/05/23 08/05/23 History mcg (1,000 unit) capsule duloxetine 20 mg capsule,delayed 20 mg PO QAM 08/05/23 08/05/23 History release omega-3 fatty acids 1,000 mg 1,000 mg PO QAM 08/05/23 08/05/23 History capsule folic acid 400 mcg tablet 0.8 mg (2 x 400 mcg) PO QAM #180 08/18/23 Rx tabs magnesium oxide 500 mg PO QAM #90 tabs 08/18/23 Rx tramadol 50 mg tablet 100 mg (2 x 50 mg) PO Q12H PRN 08/18/23 Rx pain #60 tabs Past Med/Surg History Medical History Asthma Chronic back pain COPD (chronic obstructive pulmonary disease) Depression with anxiety GERD (gastroesophageal reflux disease) Hearing deficit Right ear [place] History of breast cancer 2012, Left breast Hx lumpectomy + radiation LUE limb restrictions History of hepatitis Type A (food related) as teen, treated Hyperlipidemia Hypertension Incontinence Chronic urinary + bowel incontinence x years, unchanged (wears depends) Occasional urinary, rare bowel Insomnia Lumbar radiculopathy Obesity (BMI 30-39.9) CHACHO (obstructive sleep apnea) Per records, pt denies Sciatica Spinal stenosis Surgical History History of abdominal surgery Open, scar tissue removal History of appendectomy History of breast biopsy Left History of cataract surgery History of cholecystectomy History of colonoscopy Hx polypectomy History of esophagogastroduodenoscopy (EGD) History of foot surgery Right History of laminectomy Lumbar History of left shoulder replacement Left shoulder TSA with subacromial bursectomy and Biceps Tenodesis (11/02/18): Grade 2 view, MAC#3, ETT 7.5 + regional at [facility] History of lumpectomy History of ovarian cystectomy History of thumb surgery BL History of tonsillectomy History of total hip arthroplasty BL Family History Father Family history of diabetes mellitus Coronary heart disease s/p [place] Myocardial infarction Mother Coronary heart disease s/p [place] Myocardial infarction Aunt Breast cancer Brother , PE unprovoked age 38 Pulmonary embolism Other No family history of adverse response to anesthesia Denies family history of Ovarian cancer Prostate cancer Colorectal cancer Social History Smoking Status: Never smoker Second Hand Exposure: Yes (Both parents, ex-); Do You Dip or Chew Tobacco: No; Hx Alcohol Use: No Hx Substance Use: No Preferred Language: Ethiopian Communication Ability: Effective Visual Impairment: Partially Limited Hearing Ability: Hard of Hearing [place] Required: No Beliefs That Will Affect Care: None marital status: Single Current Living Situation: Alone current occupational status: retired How many Children do You have: 1 Feels Safe at Home: Yes Safety Concerns: Feels Safe At This Time Childhood Exposure to Second-Hand Smoke: Yes (Both parents smoked ) Diet: regular Diet Comment: Regular diet caffeine: Yes (coffee) during the past year weight has: remained stable Dental Care, Regularly: Yes Physical Activity Frequency: Does not Exercise Seatbelt Use: always Sunscreen Use: No Do you think of yourself as: straight/heterosexual Gender Identity: Female Assistive Devices: Cane, Glasses and Walker Assistive Devices Comment: no upper teeth, in process of getting upper dentures. reading glasses Review of Systems All systems reviewed & are unremarkable except as noted in HPI & below Physical Exam Constitutional: well developed and well nourished; no acute distress Eyes: PERRL, conjunctivae normal, anicteric sclerae ENMT: external ear and nose normal, oropharynx normal Neck: trachea midline, no thyromegaly Respiratory: normal respiratory effort, lungs clear to auscultation Cardiovascular: RRR, no murmur, no edema Musculoskeletal: Right shoulder: Positive impingement signs. Tenderness anterolateral acromion, anterior glenoid. Painful range of motion. Abduction to 80 degrees actively, forward flexion 120 degrees, external rotation to 45 degrees. Pain with strength testing. Skin: no rashes, warm and dry Neurologic: patellar DTR's 2+ bilat, sensation intact Psychiatric: A+Ox3, euthymic affect Results & Data Diagnostic Findings Right shoulder radiographs demonstrate [id number] glenohumeral joint with periarticular osteophytes. There is arthritic changes AC joint with heterotopic ossification. MRI demonstrates mild partial tearing rotator cuff, subacromial bursitis.
[~2023-09-04 10:47] MED LIST changes: -ACETAMINOPHEN 500 MG TAB PO SCH; +ALLERGY Noted to ORDERED Medication SCH; +BUPIVACAINE 0.5 % 5 MG/1 ML PF 10ML VIAL ONE; -CeleBREX 200 MG CAP PO SCH; -DEXAMETHASONE SOD INJ 4 MG/ML VIAL ONE; -FAMOTIDINE 20 MG TAB PO SCH; -GABAPENTIN 300 MG PO SCH; -GLYCOPYRROLATE 0.2 MG/ML VIAL ONE; -LIDOCAINE HCL 2% 2 ML VIAL/AMP(20MG/ML) INFIL ONE; -LR 15ML/HR IV SCH; -METOCLOPRAMIDE HCL 10 MG TABLET PO SCH; -MIDAZOLAM HCL 1 MG/ML 2ML VIAL ONE; -NEOSTIGMINE METHYLSULFATE 5 MG/5 ML SYR ONE; -ONDANSETRON INJ 2 MG/ML 2 ML VIAL ONE; -PROPOFOL IV EMULSION 10 MG/ML 20 ML VIAL IV ONE; -ROPIVACAINE 0.5% 5 MG/ML 30 ML VIAL ONE; -VANCOMYCIN HCL 1,000 MG/270 ML BAG IV SCH; -VANCOMYCIN HCL 1,500 MG in SODIUM CHLORIDE 0.9% 500 ML IV SCH; -dexAMETHasone 4 MG TAB PO SCH; -fentaNYL citrate 100 MCG/2 ML VIAL ONE
[2023-09-04] MEDS ORDERED: fentaNYL citrate PF 100 MCG/2 ML VIAL ONE (11:51)
[2023-09-04] MEDS ORDERED: MIDAZOLAM HCL 1 MG/ML 2ML VIAL ONE (11:51)
[2023-09-04] MEDS ORDERED: SUGAMMADEX SODIUM 200 MG/2 ML VIAL IV ONE (12:01)
[2023-09-04] MEDS ORDERED: ROCURONIUM BROMIDE 10 MG/ML 5 ML VIAL IV ONE (12:01)
[2023-09-04] MEDS ORDERED: LIDOCAINE 2% 2 ML VIAL/AMP(20MG/ML) INFIL ONE (12:01)
[2023-09-04] MEDS ORDERED: PROPOFOL IV EMULSION 10 MG/ML 20 ML VIAL IV ONE (12:01)
[2023-09-04] MEDS ORDERED: ONDANSETRON INJ 2 MG/ML 2 ML VIAL ONE (12:05)
[2023-09-04] MEDS: ACETAMINOPHEN 500 MG TAB PO SCH ×2 (12:05→23:07)
[2023-09-04] MEDS: dexAMETHasone**PF** 10 MG/ML VIAL IV SCH (12:05)
[2023-09-04] MEDS: LR 60ML/HR IV SCH (12:06)
[2023-09-04] MEDS: FAMOTIDINE 20 MG TAB PO SCH (12:06)
[2023-09-04] MEDS: GABAPENTIN 300 MG CAP PO SCH (12:06)
[2023-09-04] MEDS: METOCLOPRAMIDE HCL 10 MG TABLET PO SCH (12:06)
[2023-09-04] MEDS: LR 15ML/HR IV SCH (12:06)
--- NOTE | 2023-09-04 12:38 | History & Physical Bridge Note ---
Date of Service September 04, 2023 History & Physical Bridge Note I have examined the patient, reviewed the History & Physical and in the interval since the performance of the History & Physical I have noted the following changes of clinical significance: no changes noted
[2023-09-04] MEDS: TRANEXAMIC ACID 1,000 MG **IV Pre-op IV SCH (13:03)
[2023-09-04] MEDS ORDERED: ONDANSETRON INJ 2 MG/ML 2 ML VIAL IV PRN ×2 (13:04→17:58)
[2023-09-04] MEDS ORDERED: ATROPINE SULFATE 0.1 MG/ML 10ML SYR IV PRN (13:04)
[2023-09-04] MEDS ORDERED: ePHEDrine sulfate 50 MG/ML AMP IV PRN (13:04)
[2023-09-04] MEDS ORDERED: fentaNYL citrate PF 100 MCG/2 ML VIAL IV PRN (13:04)
[2023-09-04] MEDS: CLINDAMYCIN/D5W 900 MG/50 ML BAG IV SCH (13:29)
[2023-09-04] MEDS ORDERED: PHENYLEPHRINE 100MCG/ML 10ML SYR IV ONE (14:00)
[2023-09-04] MEDS ORDERED: ePHEDrine sulfate 50 MG/5 ML SYR ONE (14:40)
[2023-09-04] MEDS: EpINEphrine HCL INJ 1 MG/ML 1ML SYRINGE IR ONE (15:40)
[2023-09-04] MEDS: TRANEXAMIC ACID 1,000 MG **IV Intra-op IV SCH (16:12)
--- NOTE | 2023-09-04 16:49 | Operative Report ---
Post Operative Report Pre & Post Diagnosis Operation Date: 09/04/23 12:50 Pre-Op Diagnosis: Right Shoulder Primary end-stage glenohumeral osteoarthritis, rotator cuff tendinopathy small partial tear rotator cuff, subacromial bursitis, loose bodies subacromial space, biceps tendinitis, large greater tuberosity degenerative subchondral cyst. Post-Op Diagnosis: Right Shoulder primary end-stage glenohumeral osteoarthritis, rotator cuff tendinopathy with moderately large bursal sided rotator cuff tear with rotator cuff tendinopathy with loose bodies subacromial space and loose bodies in the glenohumeral joint rotator interval area and biceps tenosynovitis and tendin opathy, large greater tuberosity degenerative subchondral cyst. I identified the patient and participated in the time-out.: Yes Procedure Operation Date: 09/04/23 12:50 Actual Procedures p Right anatomic total Shoulder Arthroplasty, rotator cuff debridement and repair, subacromial bursectomy, removal loose bodies subacromial space and rotator interval. Biceps Tenodesis. Curettage and bone grafting greater tuberosity cyst.- Corey Bansal MD Surgeon Corey Bansal MD Lever Tender Marco A GREENE Estimated Blood Loss 200 Findings Consistent with Post-Op Diagnosis Specimens Humeral head cut, loose bodies Drains 2 Hemovac Anesthesia Type General Regional Complications none Disposition Disposition: Recovery Room Indications 82-year-old female with chronic progressive osteoarthritis right shoulder. Patient has significant painful active range of motion. X-rays and MRI demonstrate rotator cuff tendinopathy without full-thickness rotator cuff tear likely smaller partial rotator cuff tears and marked subacromial bursitis with loose bodies x 2 and subacromial space and biceps tendinitis. Patient has grade 4 [id number] glenohumeral osteoarthritis. MRI also demonstrates a large greater tuberosity degenerative subchondral cyst. Description of Procedure The patient was taken to the operating room and anesthetized under a general and regional block anesthesia. A towel roll was placed under the medial border of the scapula of the right shoulder. The patient's head was placed on a foam headrest and protective eyewear was placed and the extremities were well padded. TEDS and SCDs applied. The arm was draped free in order to manipulate the shoulder as necessary. The shoulder exam demonstrated forward flexion 170 degrees external rotation 80 degrees internal rotation 90 degrees with an obese arm and [id number] crepitation.. The shoulder was sterilely prepped and draped in the usual sterile fashion. An anterior deltopectoral approach was performed. A longitudinal incision was made in the interval. The skin was incised sharply and subcutaneous tissues dissected down to the fascia. The cephalic vein which was more of a vestigial small vein was identified and retracted laterally with the deltoid. The clavipectoral fascia was divided at the lateral margin of the conjoined tendon and divided up to the level of the coracoacromial ligament which was preserved. The upper 1 cm of the pectoralis was released for inferior exposure. The biceps tendon findings demonstrated chronic biceps tenosynovitis with fluid collection around the biceps tendon. Intra-articularly and proximally there was significant widening consistent with chronic tendinopathy. There was a large bursa sac overlying the rotator cuff and in the subdeltoid region there were 2 loose bodies around 4.5 x 6 mm. The rotator cuff tendon findings demonstrated normal-appearing subscapularis tendon. In the subrotator interval area there were 2 more loose bodies. The supraspinatus anterior aspect was intact in the mid supraspinatus to anterior infraspinatus tear there was bursal sided rotator cuff tendinopathy with fraying of the bursal side of the rotator cuff. There was some vertical splits in the cuff but nothing went full-thickness.. The circumflex vessels were identified and tied off with silk ties and divided laterally. The fibers and subscapularis were split longitudinally at the level of the circumflex vessels down to the capsule and then reflected off the inferior capsule using a Kitner elevator. The axillary nerve was identified with a tug test and protected with a blunt Mavis retractor. The rotator interval was opened up and extended down to the glenoid. Loose bodies in this area were removed. The biceps tendon was identified and tenodesed to the pectoralis tendon with a whipstitch and [id number] #2 FiberWire sutures in the proximal biceps was resected. The subscapularis tendon was taken down with a trans-tendinous incision leaving a cuff of tissue for repair on the lesser tuberosity. The incision was carried down through the tendon and the capsule and a #1 Vicryl suture was placed into the free end of the subscapularis tendon. The capsule was subperiosteally dissected off the inferior neck of the humerus exposing the humeral osteophytes which demonstrated large inferior and posterior inferior osteophytes. Humeral head itself was eburnated bone with no articular cartilage over 85% of the articular surface. The osteophytes were excised with an artist chisel and a rongeur. The capsular release along the inferior neck of the humerus was completed. The humerus was then retracted posterior to the glenoid with a Fukuda retractor. The remainder of the intra-articular biceps tendon and labrum were resected. The glenoid findings demonstrated complete loss of articular cartilage with eburnated bone and multiple small cysts. I did an anterior inferior and posterior inferior release with electrocautery on bone and a Shoemaker elevator with the axillary nerve continuing to be protected with the blunt Hohmann retractor inferiorly. When the releases were completed and the humeral head was exposed with some extension and external rotation and in anatomic head cut was made using the oscillating saw. The cut expose the greater tuberosity cyst which was curetted out. The size of the cyst was 12 to 15 mm in diameter. Cyst material look like typical wall of a degenerative cyst with well-circum scribed border. The Tornier Ascend flex stem and Cortiloc glenoid anatomic total shoulder arthroplasty was used. Attention was first taken to preparation of the humeral shaft. A centralizing awl was used followed by broaches up to the appropriate size. The trial broach was left in place and a cut protector was placed. The humerus was then retracted posterior to the glenoid using a Bankart retractor anteriorly and blunt Mavis and posterior Tornier glenoid retractor. A central drill hole was made into the glenoid. The glenoid was sized for a size small 30 radius Cortiloc component. The glenoid was reamed and the central drill widened and the guide for the 3 peripheral peg holes was placed in the peg holes were drilled and a trial component was placed with a tight fit. The trial was removed and the glenoid was irrigated with pulsatile lavage antibiotic solution and the drill holes were dried and packed with epinephrine-soaked tampons for hemostasis. The Palacos G cement was vacuum mixed. The final component which was the small 30 radius Cortiloc polyethylene glenoid was cemented into position and held in position with pressure until the cement cured. A humeral head trial was placed. A trial reduction was performed and the shoulder was stable. The trial was removed and the humerus and canal were irrigated with pulsatile saline solution. 3 drill holes were made into the hard bone in the bicipital groove lateral to the lesser tuberosity and 3 #5 FiberWire transosseous sutures were placed for repair of the subscapularis with Franco -Campos suture technique. After further irrigation of the canal and the final components were assembled. The final components were the 48 x 18 low offset humeral head assembled to the 5B standard humeral stem ascend flex [facility]. Reverse the bone cyst was bone grafted with cancellous bone harvested from the humeral head cut and impacted into the cyst with a bone tamp. The implant was then impacted into the humerus with a tight press-fit. The humerus was reduced to the glenoid and stability verified. The joint was then irrigated with Xperience . The subscapularis was repaired with the #5 FiberWire sutures in a Franco-Campos suture technique and lateral row fixation with [id number]-[id number] #2 FiberWire in the soft tissue. The rotator interval was closed and maximal external rotation. The splits and rotator cuff were debrided and subsequently closed with [id number]-mf-uwowl #1 Vicryl sutures the pectoralis was then closed with [id number] #2 FiberWire suture. The sutures were passed through the biceps tendon as well to reinforce the biceps tenodesis. Futher irrigation with Xperience was performed and 2 Hemovac drains were placed. The deltopectoral interval was closed with ounmkw-bf-nzrye #1 Vicryl sutures. The subcutaneous tissues were closed with interrupted 2-0 Vicryl and the skin was closed with janae and a sterile dressing was applied. The patient tolerated the procedure well. Marco A GREENE, my physician financial assistant, assisted in soft tissue retraction instrument management suture management and assisted in the subcutaneous and skin closure and will participate in the postoperative care the patient. I attest to the content of the Intraoperative Record and any orders documented therein. Any exceptions are noted below.
--- NOTE | 2023-09-04 17:34 | XRay Report ---
XR shoulder RT min 2V routine CLINICAL HISTORY: Post shoulder surgery COMPARISON: None FINDINGS: Alignment of the right shoulder arthroplasty is anatomic. There is no periprosthetic fract ure or unexpected radiopaque foreign body. There are skin janae and drains. IMPRESSION: Expected findings following right shoulder arthroplasty. ACT 112: Negative or not required by law. Electronically signed by: Rashaad Hernandez M.D. 09/04/2023 5:32 PM
[2023-09-04] MEDS ORDERED: METOCLOPRAMIDE HCL INJ 5 MG/ML 2 ML VIAL IV PRN (17:58)
[2023-09-04] MEDS ORDERED: SODIUM CHLORIDE 0.9% 1,000 ML IV SCH (17:58)
[2023-09-04] MEDS ORDERED: MAGNESIUM HYDROXIDE SUSP 30 ML UDC PO PRN (17:58)
[2023-09-04] MEDS ORDERED: NALOXONE HCL 0.4 MG/1 ML VIAL/CARP IV PRN (17:58)
[2023-09-04] MEDS ORDERED: HYDROmorphone INJ 0.5 MG/0.5 ML SYR IV PRN (17:58)
[2023-09-04] MEDS ORDERED: bisacodyL 10 MG SUPP PR PRN (17:58)
[2023-09-04] MEDS ORDERED: ALBUTEROL HFA 8 GM INHALER INH PRN (17:58)
--- NOTE | 2023-09-04 18:05 | Anesthesiology Progress Note ---
Date of Service September 04, 2023 Anesthesia Post Procedure Vital Signs Vital Signs: Temp Pulse Resp BP BP Pulse Ox O2 Del Method 09/04/23 17:50 71 16 127/62 96 Nasal Cannula 09/04/23 17:40 36.5 C 73 14 127/56 L 96 Nasal Cannula 09/04/23 17:30 72 15 122/66 94 Room Air 09/04/23 17:20 73 14 128/66 93 Room Air 09/04/23 17:10 75 20 127/63 98 Oxymask 09/04/23 16:59 36.0 C L 74 16 138/65 96 Oxymask 09/04/23 11:49 36.7 C 70 20 124/63 95 Room Air O2 Flow Rate 09/04/23 17:50 2 09/04/23 17:40 2 09/04/23 17:30 09/04/23 17:20 09/04/23 17:10 3 09/04/23 16:59 6 09/04/23 11:49 Pain Intensity Right Shoulder: Pain Intensity: 8 Transfer of Care Handoff Completed per policy Notes Mental Status: alert / awake / arousable and participated in evaluation Patient Amnestic to Procedure: Yes Nausea / Vomiting: adequately controlled Pain: adequately controlled Airway Patency, RR, SpO2: stable & adequate BP & HR: stable & adequate Hydration State: stable & adequate Anesthetic Complications: no major complications apparent
[2023-09-04] MEDS: FLUTICASONE PROPIONATE NA SPR 16 GM BTL SCH (20:53)
[2023-09-04] MEDS: EZETIMIBE 10 MG TAB PO SCH (20:53)
[2023-09-04] MEDS: ATORVASTATIN 40 MG TAB PO SCH (20:53)
[2023-09-04] MEDS: CALCIUM 600MG + VIT D 400 IU TAB PO SCH (20:53)
[2023-09-04] MEDS: CETIRIZINE HCL 10 MG TABLET PO SCH (20:54)
[2023-09-04] MEDS: METOPROLOL TARTRATE 25 MG TAB PO SCH (20:54)
[2023-09-04] MEDS: SENNA 8.6 MG TAB PO SCH (20:54)
[2023-09-04] MEDS: DOCUSATE SODIUM 100 MG CAP PO SCH (20:55)
[2023-09-04] MEDS ORDERED: Nursing to Pharmacy Communication SCH (21:30)
[2023-09-04] MEDS: CLINDAMYCIN/D5W 600 MG/50 ML BAG IV SCH (23:07)
[2023-09-05 07:03] LABS: Basophils # (auto) 0.02 K/uL (0.00-0.20); Basophils % (auto) 0.1 %; Hemoglobin 12.2 g/dl (12.0-16.0); Immature Granulocytes # (auto) 0.09 K/uL (0.01-0.20); Immature Granulocytes % (auto) 0.6 %; Lymphocytes # (auto) 1.44 K/uL (1.20-3.40); Lymphocytes % (auto) 9.2 %; Mean Corpuscular Hemoglobin 29.3 pg (25.0-34.0); Mean Corpuscular Volume 88.7 fL (80.0-100.0); Mean Platelet Volume 10.5 fL (9.4-12.4); Monocytes # (auto) 1.04 K/uL (0.11-0.59); Monocytes % (auto) 6.6 %; Neutrophils # (auto) 13.13 K/uL (1.40-6.50); Neutrophils % (auto) 83.5 %; Platelet Count 306 K/uL (130-400); RDW Coefficient of Variation 14.7 % (11.5-14.5); RDW Standard Deviation 47.8 fL (36.4-46.3); Red Blood Count 4.17 M/uL (4.20-5.40); White Blood Count 15.72 K/ul (4.8-10.8)
--- NOTE | 2023-09-05 07:13 | Orthopedic Progress Note ---
Date of Service September 05, 2023 Assessment & Plan (1) Primary osteoarthritis, right shoulder: Plan: Postop day 1 right total shoulder arthroplasty -PT/OT: Follow TSA protocol. No active shoulder motion -Pain management as written -DVT prophylaxis: SCDs, aspirin 81 mg daily -A.m. labs: Hemoglobin 12.2 from 13 preop. Leukocytosis likely reactive due to surgical stress versus perioperative steroids. Patient is asymptomatic. -Discharge planning: Initially planning on discharge home when stable, however PT recommending rehab. Case management working on this. Will plan on discharge once placement arranged. Admission and Anticipated Discharge Date Admission Date: September 04, 2023 Subjective Patient is postop day 1 right total shoulder arthroplasty. She is feeling well overall this morning. Pain is controlled. No current complaints. Denies chest pain, shortness of breath, nausea/vomiting/diarrhea, headaches or dizziness Review of Systems Review of Systems: All systems reviewed & are unremarkable except as noted in Subjective Physical Exam Physical Exam: Right shoulder: Sling is in place. Dressing is clean, dry, intact. 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 Distal neurovascular status and sensation is grossly intact Results & Data Vital Signs (Past 12 Hours) Vital Signs Temp Pulse Resp BP Pulse Ox O2 Del Method O2 Flow Rate 09/05/23 02:34 36.6 C 72 19 103/63 96 Nasal Cannula 2 09/04/23 20:59 36.8 C 79 18 128/71 95 Nasal Cannula 2 09/04/23 20:13 Nasal Cannula 2 09/04/23 20:00 36.4 C L 74 16 124/67 94 Nasal Cannula 2 Diagnostic Findings Lab Results 09/05/23 Range/Units 06:14 WBC 15.72 H (4.8-10.8) K/ul RBC 4.17 L (4.20-5.40) M/uL Hgb 12.2 (12.0-16.0) g/dl Hct 37.0 (37.0-47.0) % MCV 88.7 (80.0-100.0) fL MCH 29.3 (25.0-34.0) pg MCHC 33.0 (32.0-36.0) g/dL RDW Std Deviation 47.8 H (36.4-46.3) fL RDW Coeff of Bette 14.7 H (11.5-14.5) % Plt Count 306 (130-400) K/uL MPV 10.5 (9.4-12.4) fL Immature Gran % (Auto) 0.6 % Neut % (Auto) 83.5 % Lymph % (Auto) 9.2 % [place] % (Auto) 6.6 % Eos % (Auto) 0.0 % Baso % (Auto) 0.1 % Neut # (Auto) 13.13 H (1.40-6.50) K/uL Lymph # (Auto) 1.44 (1.20-3.40) K/uL [place] # (Auto) 1.04 H (0.11-0.59) K/uL Eos # (Auto) 0.00 (0.00-0.50) K/uL Baso # (Auto) 0.02 (0.00-0.20) K/uL Immature Gran # (Auto) 0.09 (0.01-0.20) K/uL
[2023-09-05 07:34] LABS: BUN Creatinine Ratio 26.7 (10-20); Calcium 8.7 mg/dl (8.6-10.3); Creatinine Clr Calc Pharmacy 46.8 ml/min; Est GFR (African American) 57.7 ml/min; Est GFR (Non-African American) 49.8 ml/min; Potassium 4.6 mmol/L (3.5-5.1)
--- NOTE | 2023-09-05 08:53 | Hospitalist Consultation ---
Date of Consultation September 05, 2023 Assessment & Plan (1) Primary osteoarthritis, right shoulder: S/p Right Total Shoulder Arthroplasty, Bursectomy, Biceps Tenodesis with Dr. Ruth 09/03 - pain control / abx / dvt proh per primary team - EBL 200 - hgb 12.2 (2) Hypoxia: hx of asthma - on Symbicort and prn albuterol - currently on 1L this morning, now on room air - O2 goal 94% (3) Depression: Continue Duloxetine and Wellbutrin (4) Hypertension: on amlodipine, metoprolol and candesartan at home - continue amlodpine and metoprolol as BP allows - will hold candesartan equivalent POD #1 and with the setting of hypotension (5) Hyperlipidemia: Continue Zetia and Atrovastatin Plan Dispo: continued inpatient stay Discussed case with Marco A Lopez, ortho YISSEL Thank you for allowing us to participate in the care of this patient, please reach out with any questions or concerns History of Present Illness Reason for Consultation: Post op medical management Attending Physician: Corey Bansal MD History of Present Illness Ms. Isaacs is an 82F with a PMH of HTN, HLD, depression and asthma that presents for elective shoulder surgery. At time of my exam, she denies any pain but does not feel that she is ready to go home. Unable to move arm at elbow on surgical side - ortho made aware. Low BP - denies lightheadedness or dizziness. takes BP medication at home without issues, confirmed 3 medications hypoxia - has been using IS, was using when i walked into the room Not passing gas yet - reports BMs are sporadic as she is incontinent at baseline Allergies Allergy/AdvReac Type Severity Reaction Status Date / Time clonidine Allergy Mild Unknown Verified 09/04/23 11:36 Penicillins Allergy Unknown Noted Verified 09/04/23 11:36 since childhood, unknown details NSAIDS (Non-Steroidal Allergy Unknown Verified 09/04/23 11:36 Anti-Inflamma metronidazole AdvReac Mild Nausea Verified 09/04/23 11:36 Home Medications Medication Instructions Recorded Confirmed Type aspirin 81 mg tablet,delayed 81 mg PO QAM #90 tabs 02/18/19 09/04/23 Rx release calcium citrate 315 mg 1 tab PO BID #180 tabs 02/18/19 09/04/23 Rx calcium-vitamin D3 6.25 mcg (250 unit) tablet (Citracal + Vitamin D Maximum) multivitamin 1 tab PO QAM #90 tabs 02/18/19 09/04/23 Rx albuterol sulfate 90 mcg/actuation 2 puff inhalation Q6H PRN 12/25/22 09/04/23 Rx aerosol inhaler (Ventolin HFA) shortness of breath or wheezing #8.5 grams inhalational spacing device #10 ea 12/25/22 07/22/23 Rx (Aerochamber MV spacer) metoprolol tartrate 25 mg tablet See Rx Instructions .Route 12/25/22 09/04/23 Rx .COMPLEX #270 tabs [id number] antigen-AS01E 0.5 ml IM ONCE #1 ea 07/22/23 07/22/23 Rx adjuvant(PF) 120 mcg/0.5 mL IM suspension, kit (Arexvy (PF)) atorvastatin 80 mg tablet 80 mg PO HS #90 tabs 07/22/23 09/04/23 Rx budesonide-formoterol HFA 160 2 puff inhalation BID #30.6 grams 07/22/23 09/04/23 Rx mcg-4.5 mcg/actuation aerosol inhaler (Symbicort) bupropion HCl 300 mg 24 hr tablet, 300 mg PO QAM #90 tabs 07/22/23 09/04/23 Rx extended release cetirizine 10 mg tablet 10 mg PO HS #30 tabs 07/22/23 09/04/23 Rx ezetimibe 10 mg tablet 10 mg PO HS #90 tabs 07/22/23 09/04/23 Rx fluticasone propionate 50 2 spray intranasal HS #9.9 grams 07/22/23 09/04/23 Rx mcg/actuation nasal spray,suspension (Allergy Relief (fluticasone)) amlodipine 5 mg tablet 5 mg PO QAM 08/05/23 09/04/23 History aspirin 650 mg tablet,delayed 650 mg PO Q4H PRN Pain 08/05/23 09/04/23 History release candesartan 32 mg tablet 32 mg PO QAM 08/05/23 09/04/23 History cholecalciferol (vitamin D3) 25 1,000 units PO QAM 08/05/23 09/04/23 History mcg (1,000 unit) capsule duloxetine 20 mg capsule,delayed 20 mg PO QAM 08/05/23 09/04/23 History release omega-3 fatty acids 1,000 mg 1,000 mg PO QAM 08/05/23 09/04/23 History capsule folic acid 400 mcg tablet 0.8 mg (2 x 400 mcg) PO QAM #180 08/18/23 09/04/23 Rx tabs magnesium oxide 500 mg PO QAM #90 tabs 08/18/23 09/04/23 Rx tramadol 50 mg tablet 100 mg (2 x 50 mg) PO Q12H PRN 08/18/23 09/04/23 Rx pain #60 tabs Patient History Medical History (Updated 09/05/23 @ 08:53 by Nena Quintero PA-C) COPD (chronic obstructive pulmonary disease) Asthma Incontinence Chronic urinary + bowel incontinence x years, unchanged (wears depends) Occasional urinary, rare bowel Depression with anxiety Insomnia Lumbar radiculopathy Sciatica CHACHO (obstructive sleep apnea) Per records, pt denies Obesity (BMI 30-39.9) Spinal stenosis Chronic back pain History of hepatitis Type A (food related) as teen, treated GERD (gastroesophageal reflux disease) History of breast cancer 2012, Left breast Hx lumpectomy + radiation LUE limb restrictions Hearing deficit Right ear ENTERPRISE Hypertension Hyperlipidemia Surgical History History of lumpectomy History of left shoulder replacement Left shoulder TSA with subacromial bursectomy and Biceps Tenodesis (11/02/18): Grade 2 view, MAC#3, ETT 7.5 + regional at [facility] History of thumb surgery BL History of foot surgery Right History of total hip arthroplasty BL History of laminectomy Lumbar History of ovarian cystectomy History of abdominal surgery Open, scar tissue removal History of cholecystectomy History of appendectomy History of esophagogastroduodenoscopy (EGD) History of colonoscopy Hx polypectomy History of cataract surgery History of tonsillectomy History of breast biopsy Left Family History Father Family history of diabetes mellitus Coronary heart disease s/p SC Myocardial infarction Mother Coronary heart disease s/p SC Myocardial infarction Aunt Breast cancer Brother , PE unprovoked age 38 Pulmonary embolism Other No family history of adverse response to anesthesia Denies family history of Ovarian cancer Prostate cancer Colorectal cancer Social History Smoking Status: Never smoker Second Hand Exposure: Yes (Both parents, ex-); Do You Dip or Chew Tobacco: No; Hx Alcohol Use: No Hx Substance Use: No Preferred Language: Azeri Communication Ability: Effective Visual Impairment: Partially Limited Hearing Ability: Hard of Hearing Tower Control Operator Required: No Beliefs That Will Affect Care: None marital status: Single Current Living Situation: Alone current occupational status: retired How many Children do You have: 1 Feels Safe at Home: Yes Safety Concerns: Feels Safe At This Time Childhood Exposure to Second-Hand Smoke: Yes (Both parents smoked ) Diet: regular Diet Comment: Regular diet caffeine: Yes (coffee) during the past year weight has: remained stable Dental Care, Regularly: Yes Physical Activity Frequency: Does not Exercise Seatbelt Use: always Sunscreen Use: No Do you think of yourself as: straight/heterosexual Gender Identity: Female Assistive Devices: Cane and Walker Assistive Devices Comment: no upper teeth, in process of getting upper dentures. reading glasses Review of Systems Review of Systems: All systems reviewed & are unremarkable except as noted in Subjective Physical Exam Physical Exam: General: NAD, VS as above Resp: normal respiratory effort, 94% on room air, using IS when i walked in to the room, diminished in the bases CV: RRR, no murmur, Abd: normal bowel sounds, non tender, no hepatosplenomegaly Extremities: unable to move R elbow - ortho YISSEL notified, good cap refil Results & Data Results & Data Vital Signs (Past 12 Hours) Vital Signs Temp Pulse Resp BP BP Pulse Ox O2 Del Method 09/05/23 07:13 36.4 C L 68 18 98/63 L 97 Nasal Cannula 09/05/23 02:34 36.6 C 72 19 103/63 96 Nasal Cannula 09/04/23 20:59 36.8 C 79 18 128/71 95 Nasal Cannula O2 Flow Rate 09/05/23 07:13 1 09/05/23 02:34 2 09/04/23 20:59 2 Laboratory Results CBC and chemistry reviewed PG Care Time/CCT Total # of Minutes Spent Total Time Spent with Patient: Total time spent is greater than 50% in coordination of care (as documented) at patient's floor/unit and/or counseling patient: Coding Level of Care Code 72148 IN/OBS CONSULT LVL 3,45M Diagnoses Primary osteoarthritis, right shoulder M19.011 Hypoxia R09.02 Depression F32.9 Hypertension I10 Hyperlipidemia E78.5
[2023-09-05] MEDS ORDERED: MULTIVITAMIN TAB PO SCH (09:00)
[2023-09-05] MEDS: OMEGA-3 (PURIFIED FISH OIL) 1 GM CAP PO SCH (09:41)
[2023-09-05] MEDS: MAGNESIUM OXIDE 400 MG TAB PO SCH (09:42)
[2023-09-05] MEDS: ASPIRIN 81 MG ECTAB PO SCH (09:42)
[2023-09-05] MEDS: METOPROLOL TARTRATE 25 MG TAB PO SCH (09:42)
[2023-09-05] MEDS: CHOLECALCIFEROL 25 MCG (1000 UNITS) TAB PO SCH (09:42)
[2023-09-05] MEDS: MULTIVITAMIN TAB PO SCH (09:43)
[2023-09-05] MEDS: FOLIC ACID 400 MCG TAB PO SCH (09:43)
[2023-09-05] MEDS: buPROPion XL 300 MG TABCR PO SCH (09:43)
[2023-09-05] MEDS: FLUTICASONE/VILANTEROL 100/25MCG 14 PUFFS/INHALER INH SCH (09:43)
[2023-09-05] MEDS: DULoxetine HCL 20 MG CAP PO SCH (09:43)
[2023-09-05] MEDS: amLODIPine BESYLATE 5 MG TAB PO SCH (11:43)
[2023-09-06] MEDS: oxyCODONE HCL IR 5 MG TAB (IMMEDIATE RELEASE) PO PRN (04:41)
--- NOTE | 2023-09-06 10:06 | Orthopedic Progress Note ---
Date of Service September 06, 2023 Assessment & Plan (1) Primary osteoarthritis, right shoulder: Plan: Postoperative day #2 status post right total shoulder arthroplasty doing well. -Reportedly she has a poor social support, and will therefore need rehab placement. She is able to ambulate with a cane, but admits some balance problems. Plan is for discharge to [place] on Friday. Admission and Anticipated Discharge Date Admission Date: September 05, 2023 Subjective Patient resting comfortably. Pain in the right shoulder is controlled. Her nerve block did wear off last night causing some increase in her pain. Otherwise she is doing well. Physical Exam Physical Exam: Right shoulder dressings are clean, dry, intact. Motor and sensory function is intact distally in the median, ulnar, and radial nerve distributions. Hand is warm well-perfused. Results & Data Vital Signs (Past 12 Hours) Vital Signs Temp Pulse Resp BP Pulse Ox O2 Del Method 09/06/23 07:08 36.5 C 65 16 148/1 H 92 Room Air
--- NOTE | 2023-09-06 10:57 | Hospitalist Progress Note ---
Date of Service September 06, 2023 Assessment & Plan (1) Primary osteoarthritis, right shoulder: Plan: S/p Right Total Shoulder Arthroplasty, Bursectomy, Biceps Tenodesis with Dr. Ruth 09/03 - pain control / abx / dvt proh per primary team - EBL 200 - hgb 12.2 post op (2) Hypoxia: Plan: hx of asthma - on Symbicort and prn albuterol - briefly required 1L NC post operatively. Now stable on room air (3) Depression: Plan: Continue Duloxetine and Wellbutrin (4) Hypertension: Plan: on amlodipine, metoprolol and candesartan at home - continue amlodpine and metoprolol as BP allows - Resumed candesartan equivalent 09/05 (5) Hyperlipidemia: Plan: Continue Zetia and Atrovastatin Plan Dispo: continued inpatient stay, awaiting placement Thank you for allowing us to participate in the care of this patient, please reach out with any questions or concerns Admission and Anticipated Discharge Date Admission Date: September 05, 2023 Subjective Patient sitting up in the chair. Pain started yesterday after nerve block wear off but overall pain is controlled. No bowel movement yet. did not require oxygen overnight sensation improved to right arm, still decreased ROM at right elbow Review of Systems Review of Systems: All systems reviewed & are unremarkable except as noted in Subjective Physical Exam Physical Exam: General: NAD, VS as above Resp: normal respiratory effort, clear to ascultation CV: RRR, no murmur, Abd: normal bowel sounds, non tender, no hepatosplenomegaly Extremities: slight increased ROM of elbow, but still decreased. distal sesnation intact and cap refill less than 3 seconds Results & Data Results & Data Vital Signs (Past 12 Hours) Vital Signs Temp Pulse Resp BP Pulse Ox O2 Del Method 09/06/23 07:08 36.5 C 65 16 148/1 H 92 Room Air PG Care Time/CCT Total # of Minutes Spent Total Time Spent with Patient: Total time spent is greater than 50% in coordination of care (as documented) at patient's floor/unit and/or counseling patient: Coding Level of Care Code 70778 SUB INP/OBS CARE 2/35MIN Diagnoses Primary osteoarthritis, right shoulder M19.011 Hypoxia R09.02 Depression F32.9 Hypertension I10 Hyperlipidemia E78.5
[2023-09-06] MEDS: LOSARTAN POTASSIUM 50 MG TAB PO ONE (12:34)
--- NOTE | 2023-09-07 08:47 | Orthopedic Progress Note ---
Date of Service September 07, 2023 Assessment & Plan (1) Status post reverse total replacement of right shoulder: Plan: 82 yo female stable POD #3 s/p right reverse TSA 1. Med management 2. DVT prophylaxis- ASA, SCDs 3. PT/OT 4. D/C planning- d/c to [facility] tomorrow Admission and Anticipated Discharge Date Admission Date: September 05, 2023 Subjective Pt sitting in chair having breakfast, pain controlled, denies complaints Physical Exam Physical Exam: Silverlon dressing in place, fingers mobile, NVI Results & Data Vital Signs (Past 12 Hours) Vital Signs Temp Pulse Resp BP Pulse Ox O2 Del Method 09/07/23 08:11 36.3 C L 63 16 141/78 H 97 Room Air 09/06/23 21:15 Room Air
[2023-09-07] MEDS: LOSARTAN POTASSIUM 50 MG TAB PO SCH (08:48)
--- NOTE | 2023-09-07 09:09 | Hospitalist Progress Note ---
Date of Service September 07, 2023 Assessment & Plan (1) Primary osteoarthritis, right shoulder: Plan: S/p Right Total Shoulder Arthroplasty, Bursectomy, Biceps Tenodesis with Dr. Ruth 09/03 - pain control / abx / dvt proh per primary team - EBL 200 - hgb 12.2 post op (2) Hypoxia: Plan: hx of asthma - on Symbicort and prn albuterol - briefly required 1L NC post operatively. Now stable on room air (3) Depression: Plan: Continue Duloxetine and Wellbutrin (4) Hypertension: Plan: on amlodipine, metoprolol and candesartan at home - continue amlodpine and metoprolol as BP allows - Resumed candesartan equivalent 09/05 BP stable (5) Hyperlipidemia: Plan: Continue Zetia and Atrovastatin Plan Dispo: continued inpatient stay, awaiting placement, medically stable Thank you for allowing us to participate in the care of this patient, we will sign off, please reconsult with any new concerns. Admission and Anticipated Discharge Date Admission Date: September 05, 2023 Subjective sitting up to the chair. continues to be on room air. good appetite. + bowel movement Review of Systems Review of Systems: All systems reviewed & are unremarkable except as noted in Subjective Physical Exam Physical Exam: General: NAD, VS as above Resp: normal respiratory effort, clear to ascultation CV: RRR, no murmur, Abd: normal bowel sounds, non tender, no hepatosplenomegaly Extremities: increased ROM of elbow. distal sesnation intact and cap refill less than 3 seconds Results & Data Results & Data Vital Signs (Past 12 Hours) Vital Signs Temp Pulse Resp BP Pulse Ox O2 Del Method 09/07/23 08:11 36.3 C L 63 16 141/78 H 97 Room Air 09/06/23 21:15 Room Air PG Care Time/CCT Total # of Minutes Spent Total Time Spent with Patient: Total time spent is greater than 50% in coordination of care (as documented) at patient's floor/unit and/or counseling patient: Coding Level of Care Code 39604 SUB INP/OBS CARE 2/35MIN Diagnoses Primary osteoarthritis, right shoulder M19.011 Hypoxia R09.02 Depression F32.9 Hypertension I10 Hyperlipidemia E78.5
--- NOTE | 2023-09-08 07:10 | Orthopedic Progress Note ---
Date of Service September 08, 2023 Assessment & Plan (1) Status post reverse total replacement of right shoulder: Plan: 82 yo female stable POD #4 s/p right TSA 1. Med management 2. DVT prophylaxis- ASA, SCDs 3. PT/OT-follow TSA protocol 4. [facility]C planning- [facility] Admission and Anticipated Discharge Date Admission Date: September 05, 2023 Subjective Patient is postop day 1 right total shoulder. She is feeling well overall. Some pain but is controlled. No other complaints. Denies chest pain, shortness of breath, nausea/vomiting/diarrhea, headaches or dizziness. Review of Systems Review of Systems: All systems reviewed & are unremarkable except as noted in Subjective Physical Exam Physical Exam: Right shoulder: Sling is in place. Dressing is clean, dry, intact. Fingers are mobile with good medical i d sales strength. Distal neurovascular status and sensation is grossly intact Results & Data Vital Signs (Past 12 Hours) Vital Signs Temp Pulse Resp BP Pulse Ox O2 Del Method 09/08/23 06:55 36.4 C L 69 16 144/81 H 96 Room Air 09/07/23 19:33 36.8 C 71 18 119/72 96 Room Air
--- NOTE | 2023-09-08 16:08 | Discharge Summary ---
Date of Service September 08, 2023 Admission HPI Per Admitting Provider 82-year-old female with past medical history significant for COPD, CHACHO, hypertension who presents with ongoing right shoulder pain. Pain is interfering with her daily activities. She has failed conservative measures and would like to proceed with surgical intervention. Patient denies headaches, sweats, fevers, chills, double vision, blurred vision, cough, sore throat, dysphagia, chest pain, sob, wheezing, n/v/d/c, numbness, tingling, fatigue, urinary symptoms, mood disorders. ROS positive for right shoulder pain and stiffness. Admission Exam Per Admitting Provider Constitutional: well developed and well nourished; no acute distress Eyes: PERRL, conjunctivae normal, anicteric sclerae ENMT: external ear and nose normal, oropharynx normal Neck: trachea midline, no thyromegaly Respiratory: normal respiratory effort, lungs clear to auscultation Cardiovascular: RRR, no murmur, no edema Musculoskeletal: Right shoulder: Positive impingement signs. Tenderness anterolateral acromion, anterior glenoid. Painful range of motion. Abduction to 80 degrees actively, forward flexion 120 degrees, external rotation to [address] rength testing. Skin: no rashes, warm and dry Neurologic: patellar DTR's 2+ bilat, sensation intact Psychiatric: A+Ox3, euthymic affect Principal Diagnosis Right shoulder osteoarthritis Discharge Exam Right shoulder: Sling is in place. Dressing is clean, dry, intact. Fingers are mobile with good manager of organizational development strength. Distal neurovascular status and sensation is grossly intact Discharge Data Allergies Allergy/AdvReac Type Severity Reaction Status Date / Time clonidine Allergy Mild Unknown Verified 09/04/23 11:36 Penicillins Allergy Unknown Noted Verified 09/04/23 11:36 since childhood, unknown details NSAIDS (Non-Steroidal Allergy Unknown Verified 09/04/23 11:36 Anti-Inflamma metronidazole AdvReac Mild Nausea Verified 09/04/23 11:36 Consultations 09/02/23 09:54 Consult Hospitalist Routine Procedures Performed Operation Date: 09/04/23 12:50 Actual Procedures p Right Total Shoulder Arthroplasty, Bursectomy, Biceps Tenodesis(Right) - Corey Bansal MD Ordered Studies 09/04/23 05:00 US - OR guided needle placemen Routine Hospital Course (1) Status post reverse total replacement of right shoulder: 82 yo female stable POD #4 s/p right TSA 1. Med management 2. DVT prophylaxis- ASA, SCDs 3. PT/OT-follow TSA protocol 4. D/C planning- d/c to [place] [facility] today 82 yo female stable POD #3 s/p right TSA 1. Med management 2. DVT prophylaxis- ASA, SCDs 3. PT/OT 4. D/C planning- d/c to [facility] tomorrow Postoperative day #2 status post right total shoulder arthroplasty doing well. -Reportedly she has a poor social support, and will therefore need rehab placement. She is able to ambulate with a cane, but admits some balance problems. Plan is for discharge to [facility] on Friday. Postop day 1 right total shoulder arthroplasty -PT/OT: Follow TSA protocol. No active shoulder motion -Pain management as written -DVT prophylaxis: SCDs, aspirin 81 mg daily -A.m. labs: Hemoglobin 12.2 from 13 preop. Leukocytosis likely reactive due to surgical stress versus perioperative steroids. Patient is asymptomatic. -Discharge planning: Initially planning on discharge home when stable, however PT recommending rehab. Case management working on this. Will plan on discharge once placement arranged. Lab Results 09/05/23 Range/Units 06:14 WBC 15.72 H (4.8-10.8) K/ul RBC 4.17 L (4.20-5.40) M/uL Hgb 12.2 (12.0-16.0) g/dl Hct 37.0 (37.0-47.0) % MCV 88.7 (80.0-100.0) fL MCH 29.3 (25.0-34.0) pg MCHC 33.0 (32.0-36.0) g/dL RDW Std Deviation 47.8 H (36.4-46.3) fL RDW Coeff of Bette 14.7 H (11.5-14.5) % Plt Count 306 (130-400) K/uL MPV 10.5 (9.4-12.4) fL Immature Gran % (Auto) 0.6 % Neut % (Auto) 83.5 % Lymph % (Auto) 9.2 % [place] % (Auto) 6.6 % Eos % (Auto) 0.0 % Baso % (Auto) 0.1 % Neut # (Auto) 13.13 H (1.40-6.50) K/uL Lymph # (Auto) 1.44 (1.20-3.40) K/uL [place] # (Auto) 1.04 H (0.11-0.59) K/uL Eos # (Auto) 0.00 (0.00-0.50) K/uL Baso # (Auto) 0.02 (0.00-0.20) K/uL Immature Gran # (Auto) 0.09 (0.01-0.20) K/uL Sodium 136 (136-145) mmol/L Potassium 4.6 (3.5-5.1) mmol/L Chloride 105 (98-107) mmol/L Carbon Dioxide 24 (21-32) mmol/L Anion Gap 7 (3-11) BUN 28 H (6-23) mg/dl Creatinine 1.05 (0.6-1.2) mg/dl Est Cr Clr Drug Dosing 46.8 ml/min Est GFR ( Amer) 57.7 ml/min Est GFR (Non-Af Amer) 49.8 ml/min BUN/Creatinine Ratio 26.7 H (10-20) Glucose 129 H (70-99(Fasting)) mg/dl Calcium 8.7 (8.6-10.3) mg/dl Total Time Total Time Spent Total Time Spent (In Minutes): 20 Discharge Plan Discharge Items Patient Disposition: Transfer Longterm Fac Reason For Visit: POST OP Discharge Diagnosis: Right shoulder osteoarthritis Activity: Per Instructions section Non-emergency contact: Surgeon Call non-emergency contact if: you have any medication questions, your pain is not controlled, your pain is concerning for you, you have a fever, your temperature is above 101, your wound has increased redness and your wound has increased drainage Follow-up/Referrals: Hever Neal MD [Primary Care Provider] - Diet: Regular Addtl Attending Provider Instructions: ACTIVITY RECOMMENDATIONS: SELF CARE INSTRUCTIONS AFTER TOTAL SHOULDER ARTHROPLASTY A. You may do daily exercises as taught in physical therapy while in hospital. No lifting with the operative arm. Please schedule your outpatient physical therapy appointment to begin within 2-3 days after leaving the hospital. Specific restrictions will be written on your physical therapy prescription that is provided to you. B. You are to wear your sling/immobilizer at all times EXCEPT when performing your daily exercises, participating in physical therapy and for hygiene purposes. C. You may perform dry, daily dressing changes. Please keep your incision covered. You may shower 48 hours after surgery. Do not apply soap or any ointment/lotions directly over incision. Do not soak incision in bath tub/swimming pool. D. You may use ice as needed to operative shoulder. SPECIAL CARE INSTRUCTIONS: MEDICATION INSTRUCTIONS: VERY IMPORTANT TO READ AND REVIEW A. There are a few signs you need to watch for after you are home. Call [facility] at [phone] if you experience any of the followin. Increased severe shoulder pain. Some pain is expected especially when you exercise. 2. Increased swelling in you shoulder or arm; pain or swelling in either upper extremity. 3. Any fluid drainage from the incision. 4. Shortness of breath or chest pain. B. Please call [facility] at [phone] if you have any questions or concerns about your operation or recovery. C. Call your physician if: 1. Temperature is greater than 101 degrees (F). 2. Pain is not relieved by prescribed pain medications. 3. Increase drainage or redness from incision. 4. Unanswered questions or concerns. FOLLOW UP VISIT: Please call [facility] at [phone] to schedule a follow up appointment with Dr. Bansal or his PA in 12-14 days from your surgery date. Stand-Alone Forms: My [facility] Skilled Items Patient informed of condition?: Yes DNR: No Discharge Level of Care: Skilled Communicable Disease: No Discharge Prognosis: Improving Lines: None Urinary Catheter: No Medications and DC Order Prescriptions: New acetaminophen [Tylenol Extra Strength] 500 mg Tablet 1,000 mg PO Q8 Qty: 60 0RF oxycodone 5 mg Tablet 5 - 10 mg PO .Q4h-6h MDD 6 PRN (Reason: pain) Qty: 30 0RF Rx Instructions: Ongoing therapy, Dr. Bansal supervising Continued magnesium oxide 500 mg magnesium tablet 500 mg PO QAM Qty: 90 2RF folic acid 400 mcg tablet 0.8 mg PO QAM Qty: 180 3RF budesonide-formoterol [Symbicort] 160-4.5 mcg/actuation HFA aerosol inhaler 2 puff inhalation BID Qty: 30.6 3RF atorvastatin 80 mg tablet 80 mg PO HS Qty: 90 1RF bupropion HCl 300 mg tablet extended release 24 hr 300 mg PO QAM Qty: 90 1RF ezetimibe 10 mg tablet 10 mg PO HS Qty: 90 1RF cetirizine 10 mg tablet 10 mg PO HS Qty: 30 5RF fluticasone propionate [Allergy Relief (fluticasone)] 50 mcg/actuation spray,suspension 2 spray intranasal HS Qty: 9.9 2RF Rx Instructions: administer into each nostril BID x 3 days then 2 sprays each nostril at HS thereafter Arexvy (PF) 120 mcg/0.5 mL suspension for reconstitution 0.5 ml IM ONCE Qty: 1 0RF albuterol sulfate [Ventolin HFA] 90 mcg/actuation HFA aerosol inhaler 2 puff inhalation Q6H PRN (Reason: shortness of breath or wheezing) Qty: 8.5 2RF metoprolol tartrate 25 mg tablet See Rx Instructions .ROUTE .COMPLEX Qty: 270 5RF Dose Instruction: TAKE 1 TABLET BY MOUTH IN THE MORNING AND 2 TABLETS BY MOUTH IN THE EVENING Rx Instructions: TAKE 1 TABLET BY MOUTH IN THE MORNING AND 2 TABLETS BY MOUTH IN THE EVENING (DME) Aerochamber MV Spacer See Rx Instructions .Route Qty: 10 5RF Rx Instructions: As directed aspirin 81 mg tablet,delayed release (DR/EC) 81 mg PO QAM Qty: 90 3RF calcium citrate-vitamin D3 [Citracal + D Maximum] 315 mg- 250 unit tablet 1 tab PO BID Qty: 180 3RF multivitamin tablet 1 tab PO QAM Qty: 90 3RF omega-3 fatty acids 1,000 mg capsule 1,000 mg PO QAM amlodipine 5 mg tablet 5 mg PO QAM candesartan 32 mg tablet 32 mg PO QAM cholecalciferol (vitamin D3) 1,000 unit capsule 1,000 units PO QAM duloxetine 20 mg capsule,delayed release(DR/EC) 20 mg PO QAM Discontinued tramadol 50 mg tablet 100 mg PO Q12H PRN (Reason: pain) Qty: 60 2RF aspirin 650 mg Tablet,Delayed Release (Dr/Ec) 650 mg PO Q4H PRN (Reason: Pain) Discharge Orders: Discharge Order (Routine); Ordered 03/18/24 Ordered By: Marco A Silva/Other Patient Handouts: Shoulder Replace Home Recovery Admission Data Admit Date/Time: 09/05/23 13:58 Attending Provider: Corey Bansal Admit Provider: Corey Bansal Primary Care Provider: Hever Neal Other Providers: Mary Mcfarlane Other Interventions: Discharge Summary Assessment (RN) Last Done: 09/08/23 08:49
== END 2023-09-08 13:37 | DRG 483 ==
LOC: 3N 10:47 → ASU 10:47